=== PATIENT | female | born 1955 | race Caucasian/White ===

== ENCOUNTER 2021-05-01 17:12 | Inpatient (IN) ==
[2021-05-01] MEDS ORDERED: fentaNYL citrate 100 MCG/2 ML VIAL IV STA (17:42)
[2021-05-01] MEDS ORDERED: ONDANSETRON INJ 2 MG/ML 2 ML VIAL IV STA (17:42)
--- NOTE | 2021-05-01 17:43 | Emergency Department Note ---
History of Present Illness General Chief complaint: Chest Pain Stated complaint: Intermittent Chest Pressure Time Seen by Provider: 05/01/21 17:16 Source: patient History of Present Illness Provider complaint: Chest pain Onset (ago): month(s) 3 Location: chest Radiation: non-radiation Pain Consistency: + intermittent Quality: + other (Pressure) Exacerbated By: + other (Climbing stairs) Associated symptoms: + chest pain, + cough, + headaches and + shortness of breath; no fever/chills or no nausea/vomiting This is a 66-year-old female with a history of high cholesterol, high blood pressure and diabetes presenting from her doctor's office via EMS for evaluation of chest pain. The patient has had chest pain intermittently for the past 3 months. She has it mostly every day. It is worse in the mornings. She has noticed that it is worse when she climbs the stairs. She is not very active. She denies any personal history of coronary artery disease but her mother had CHF. She states that she had a stress test many many years ago but does not remember when. She was seen at her doctor's office for routine visit. She mentioned that she had chest pain. Her doctor did a EKG and sent her here for evaluation. She was given 2 nitroglycerin in the ambulance as well as aspirin. She has had cough and headache and body aches with a strange taste sensation for the past 2 months. She has been tested for Covid several times and this has been negative. She denies abdominal pain, vomiting, diarrhea or leg swelling or pain. She does state that she has retention after she urinates. Home Medications Medication Instructions Recorded Confirmed Type amlodipine 10 mg tablet 10 mg PO DAILY 05/01/21 05/01/21 History aspirin 81 mg tablet,delayed 81 mg PO DAILY 05/01/21 05/01/21 History release (Aspirin Low Dose) baclofen 10 mg tablet 10 mg PO HS 05/01/21 05/01/21 History buspirone 5 mg tablet See Rx Instructions .ROUTE .COMPLEX 05/01/21 05/01/21 History diphenhydramine HCl 25 mg capsule 50 mg PO HS 05/01/21 05/01/21 History (Benadryl) docusate sodium 100 mg capsule 100 mg PO BID 05/01/21 05/01/21 History fexofenadine 180 mg tablet 180 mg PO DAILY 05/01/21 05/01/21 History (Juanita Allergy) glucosamine sulfate 1,000 mg 1,000 mg PO BID 05/01/21 05/01/21 History capsule ibuprofen 200 mg tablet 400 mg PO Q6H PRN 05/01/21 05/01/21 History insulin glargine 100 unit/mL (3 42 unit SUBCUT BID 05/01/21 05/01/21 History mL) subcutaneous pen (Lantus Solostar U-100 Insulin) levothyroxine 125 mcg tablet 125 mcg PO QAM 05/01/21 05/01/21 History linagliptin 5 mg tablet (Tradjenta) 5 mg PO QAM 05/01/21 05/01/21 History lisinopril 10 mg tablet 10 mg PO QAM 05/01/21 05/01/21 History metformin 1,000 mg tablet 1,000 mg PO BIDM 05/01/21 05/01/21 History mometasone 50 mcg/actuation nasal 1 spray INTRANASAL QAM 05/01/21 05/01/21 History spray montelukast 10 mg tablet 10 mg PO QAM 05/01/21 05/01/21 History nystatin 100,000 unit/gram topical 1 applic TOPICAL DAILY PRN 05/01/21 05/01/21 History cream pantoprazole 40 mg tablet,delayed 40 mg PO QAM 05/01/21 05/01/21 History release rosuvastatin 20 mg tablet 20 mg PO QPM 05/01/21 05/01/21 History sertraline 100 mg tablet 200 mg PO QAM 05/01/21 05/01/21 History vitamin B complex 1 tab PO QAM 05/01/21 05/01/21 History Allergies Allergy/AdvReac Type Severity Reaction Status Date / Time naproxen Allergy Unknown "STROKE-LIKE Verified 05/01/21 18:02 SYMPTOMS" Past Med/Surg History Medical History (Updated 05/01/21 @ 19:59 by Hal Ornelas MD) Diabetes Hypertension Hypothyroidism Family History (Updated 05/01/21 @ 17:47 by Hal Ornelas MD) Mother Congestive heart failure Social History Smoking Status: Never smoker Feels Safe at Home: Yes Review of Systems See HPI for pertinent positives & negatives. and A total of 10 systems reviewed and were otherwise negative Physical Exam Vital Signs Vital Signs - 24 hr 05/01/21 17:29 05/01/21 17:35 05/01/21 17:47 Temperature 36.8 C Temperature Source Oral Pulse Rate 93 H 85 Pulse Rate [Apical] 98 H Respiratory Rate 20 22 20 Respiratory Effort / Characteristics Non-Labored Spontaneous Respiratory Depth Normal Respiratory Pattern Regular Blood Pressure 147/71 H Blood Pressure [Left Arm] 147/71 H Blood Pressure Mean 96 Blood Pressure Mean [Left Arm] 96 Blood Pressure Position Lying Pulse Oximetry 97 97 97 Oxygen Delivery Method Room Air Room Air Room Air Sepsis Recent Fever Within 48 Hours No Sepsis New/Unexplained Change in Mental Status N/A Sepsis Action Taken by Nursing No Action Required Constitutional: Vital signs reviewed. Eyes: Pupils are equal round reactive to light. Conjunctiva are noninjected. ENT: Pharynx is clear without erythema or exudate. Mucous membranes are moist. Neck supple without meningeal signs. Respiratory: Clear to auscultation bilaterally. Breath sounds are equal bilaterally. Cardiovascular: Regular rate and rhythm. No rubs or gallops. GI: Soft, nondistended and nontender. Bowel sounds are present. Musculoskeletal: No peripheral edema. No lower extremity tenderness. Integumentary: No cyanosis. or jaundice. Neurological: The patient is awake and alert. No focal deficits. Psychiatric: Normal affect. Not anxious appearing. Course Administered Medications Discontinued Medications Fentanyl Citrate (Fentanyl Citrate 100 Mcg/2 Ml Vial) 50 mcg IV NOW STA Stop: 05/01/21 17:43 Last Admin: 05/01/21 18:11 Dose: 50 mcg Documented by: [id number] Ioversol (Optiray 320 125ml) 120 ml IV ONCE ONE Stop: 05/01/21 19:12 Last Admin: 05/01/21 19:12 Dose: 120 ml Documented by: [id number] Ondansetron HCl (Ondansetron Inj 2 Mg/Ml 2 Ml Vial) 4 mg IV NOW STA Stop: 05/01/21 17:43 Last Admin: 05/01/21 18:11 Dose: 4 mg Documented by: [id number] Medical Decision Making Differential Diagnosis Unstable angina, [place], PE, pleurisy, pneumonia, GERD, anxiety Medical Records Attestation: I reviewed the patient's medical records. I did perform a limited focused review of portions of the patient's old chart on the electronic medical record. The patient has had no recent pertinent visits to this hospital. Home Medications Current Medication List: was personally reviewed by me Laboratory Data Attestation: I reviewed the patient's lab results. Result diagrams: 05/01/21 16:46 05/01/21 16:46 Lab Results 05/01/21 05/01/21 05/01/21 Range/Units 16:46 16:46 16:46 WBC 12.41 H (4.8-10.8) K/uL RBC 4.23 (4.2-5.4) M/uL Hgb 10.7 L (12.0-16.0) g/dL Hct 33.3 L (37-47) % MCV 78.7 L (80-100) fL MCH 25.3 (25-34) pg MCHC 32.1 (32-36) g/dL RDW Std Deviation 45.8 (36.4-46.3) fL RDW Coeff of Walker 15.9 H (11.5-14.5) % Plt Count 460 H (130-400) K/uL MPV 9.2 (7.4-10.4) fL Immature Gran % (Auto) 0.7 % Neut % (Auto) 73.2 % Lymph % (Auto) 14.9 % Josephine % (Auto) 9.6 % Eos % (Auto) 1.5 % Baso % (Auto) 0.1 % Neut # (Auto) 9.08 H (1.4-6.5) K/uL Lymph # (Auto) 1.85 (1.2-3.4) K/uL Josephine # (Auto) 1.19 H (0.11-0.59) K/uL Eos # (Auto) 0.19 (0-0.5) K/uL Baso # (Auto) 0.01 (0-0.2) K/uL Immature Gran # (Auto) 0.09 H (0.00-0.02) K/uL D-Dimer 5510 H* (0-500) ug/L FEU Sodium 126 L (136-145) mmol/L Potassium 4.1 (3.5-5.1) mmol/L Chloride 93 L (98-107) mmol/L Carbon Dioxide 24 (21-32) mmol/L Anion Gap 9.0 (3-11) BUN 7 (7-18) mg/dl Creatinine 0.85 (0.6-1.2) mg/dl Est Cr Clr Drug Dosing 92.0 ml/min Est GFR ( Amer) 83.3 ml/min Est GFR (Non-Af Amer) 71.9 ml/min BUN/Creatinine Ratio 8.4 L (10-20) Glucose 221 H (70-99) mg/dl Calcium 9.1 (8.5-10.1) mg/dl Total Bilirubin 0.3 (0.2-1) mg/dl AST 21 (15-37) U/L ALT 26 (12-78) U/L Alkaline Phosphatase 72 (45-117) U/L Troponin I < 0.015 (0-0.045) ng/ml Total Protein 7.9 (6.4-8.2) gm/dl Albumin 3.9 (3.4-5.0) gm/dl Globulin 4.0 (2.5-4.0) gm/dl Albumin/Globulin Ratio 1.0 (0.9-2) Lipase 153 (73-393) U/L COVID-19 Eval Order SARS-CoV-2 (PCR) (Negative) 05/01/21 05/01/21 Range/Units 18:09 18:09 WBC (4.8-10.8) K/uL RBC (4.2-5.4) M/uL Hgb (12.0-16.0) g/dL Hct (37-47) % MCV (80-100) fL MCH (25-34) pg MCHC (32-36) g/dL RDW Std Deviation (36.4-46.3) fL RDW Coeff of Walker (11.5-14.5) % Plt Count (130-400) K/uL MPV (7.4-10.4) fL Immature Gran % (Auto) % Neut % (Auto) % Lymph % (Auto) % Josephine % (Auto) % Eos % (Auto) % Baso % (Auto) % Neut # (Auto) (1.4-6.5) K/uL Lymph # (Auto) (1.2-3.4) K/uL Josephine # (Auto) (0.11-0.59) K/uL Eos # (Auto) (0-0.5) K/uL Baso # (Auto) (0-0.2) K/uL Immature Gran # (Auto) (0.00-0.02) K/uL D-Dimer (0-500) ug/L FEU Sodium (136-145) mmol/L Potassium (3.5-5.1) mmol/L Chloride (98-107) mmol/L Carbon Dioxide (21-32) mmol/L Anion Gap (3-11) BUN (7-18) mg/dl Creatinine (0.6-1.2) mg/dl Est Cr Clr Drug Dosing ml/min Est GFR ( Amer) ml/min Est GFR (Non-Af Amer) ml/min BUN/Creatinine Ratio (10-20) Glucose (70-99) mg/dl Calcium (8.5-10.1) mg/dl Total Bilirubin (0.2-1) mg/dl AST (15-37) U/L ALT (12-78) U/L Alkaline Phosphatase (45-117) U/L Troponin I (0-0.045) ng/ml Total Protein (6.4-8.2) gm/dl Albumin (3.4-5.0) gm/dl Globulin (2.5-4.0) gm/dl Albumin/Globulin Ratio (0.9-2) Lipase (73-393) U/L COVID-19 Eval Order Covid19 at [facility] SARS-CoV-2 (PCR) NEGATIVE (Negative) Imaging Data Radiologist's Impression: Chest X-Ray 05/01/21 17:42 XR chest 1V portable HISTORY: Atypical Chest Pain COMPARISON: Chest 11/25/2010. FINDINGS: The cardiac silhouette remains top normal in size. The lungs are clear. No pleural effusions. No pneumothorax. IMPRESSION: No acute process. ACT 112: Negative or not required by law. Electronically signed by: Maldonado Lang M.D. 05/01/2021 6:52 PM Chest CTA 05/01/21 18:24 CHEST CTA for PULMONARY ARTERIES CT DOSE: 969.58 mGy.cm HISTORY: Atypical chest pain. Dizziness. Chest pressure. TECHNIQUE: Multiaxial CT images of the chest were performed following the intravenous administration of contrast to evaluate the pulmonary arteries. Maximal intensity projection images were also obtained. A dose lowering technique was utilized adhering to the principles of ALARA. COMPARISON STUDY: None. FINDINGS: Hepatic steatosis. The visualized spleen and adrenal glands are unremarkable. Normal caliber thoracic aorta with no evidence for dissection. Moderate calcified plaque within the left coronary artery. The heart is normal in size. No pleural or pericardial effusions. The main and lobar pulmonary arteries are patent. The majority of the upper lobe segmental and subsegmental pulmonary arteries are patent. The lingular and right middle lobe segmental/subsegmental pulmonary arteries as well as the bilateral lower lobe segmental pulmonary arteries are nondiagnostic due to the respiratory motion artifact. The remaining pulmonary arteries are patent. No mediastinal hilar lymphadenopathy. Normal esophagus. No fractures within the visualized osseous structures. No pneumothorax. The central airways are patent. IMPRESSION: 1. No evidence for pulmonary embolus with limitations as described above. 2. No focal lung consolidations to suggest pneumonia. 3. Moderate calcified plaque within the left coronary artery. ACT 112: Negative or not required by law. Electronically signed by: Maldonado Lang M.D. 05/01/2021 7:47 PM ECG Data Attestation: I personally reviewed and interpreted this ECG as follows: Indication: + chest pain Rate (beats per minute): 89 Rhythm: + normal sinus ECG ST segments: + T-wave inversions (aVL only); no ST elevation ECG Findings: no PVCs Comparison ECG Date: no prior available MDM Narrative I did evaluate the patient as noted above. She is presenting with exertional chest pressure intermittently for the past 3 months. She did receive nitroglycerin x2 in the ambulance as well as 324 mg of aspirin p.o. I did place an order for continuous cardiac monitoring. The monitor showed normal sinus rhythm at a rate of 85 bpm. I did order and personally review the patient's 12- lead EKG as described above. She has a T wave inversion in lead aVL only. No ST elevations. I did order and personally reviewed the images of the patient's chest x-ray as described above. Chest x-ray is unremarkable. I did order a urine analysis. I did order and review the patient's blood work as noted in the electronic medical record. Her white blood cell count is 12,000. Hemoglobin is 10.7. Platelet count is 460. D-dimer was elevated at 5510. Sodium is 126 with a glucose of 221. Her last sodium on February 8 was 129 in the epic system. Troponin is negative. LFTs and lipase are negative. COVID-19 testing is negative. I did order a CT angiogram of the chest. I did review the images myself as well as the radiology report as described above. There is no evidence of pulmonary embolism. She does have a calcified plaque within the left coronary artery. I did discuss the test results with the patient. On reexamination she states that her chest pain is now resolved. I did recommend hospitalization for further care and evaluation. I did discuss the case with the hospitalist and case filler. Resident Physician Supervision Note: I did perform an independent evaluation and examination of this patient as described. I also saw this patient in conjunction with the resident, Dr. Quincy lizarraga, and guided management for the patient. Impression & Plan Exertional chest pain, Abnormal ECG, Coronary artery disease, Hyponatremia, Acute hyperglycemia Discharge Plan Visit Data Chief Complaint: Chest Pain Stated Complaint: Intermittent Chest Pressure ED Provider: Hal Ornelas ED Midlevel Provider: Skyla Earl Discharge Problem: Exertional chest pain, Abnormal ECG, Coronary artery disease, Hyponatremia, Acute hyperglycemia Patient Disposition: Being Evaluated by Hospitalist Forms Stand Alone Forms: My [facility] Prescriptions Prescriptions: No Action aspirin [Aspirin Low Dose] 81 mg Tablet,Delayed Release (Dr/Ec) 81 mg PO DAILY RF: 0 baclofen 10 mg tablet 10 mg PO HS RF: 0 amlodipine 10 mg tablet 10 mg PO DAILY RF: 0 montelukast 10 mg tablet 10 mg PO QAM RF: 0 buspirone 5 mg tablet See Rx Instructions .ROUTE .COMPLEX RF: 0 sertraline 100 mg tablet 200 mg PO QAM RF: 0 metformin 1,000 mg tablet 1,000 mg PO BIDM RF: 0 lisinopril 10 mg tablet 10 mg PO QAM RF: 0 Tradjenta 5 mg tablet 5 mg PO QAM RF: 0 pantoprazole 40 mg tablet,delayed release (DR/EC) 40 mg PO QAM RF: 0 levothyroxine 125 mcg tablet 125 mcg PO QAM RF: 0 Lantus Solostar U-100 Insulin 100 unit/mL (3 mL) insulin pen 42 unit SUBCUT BID RF: 0 fexofenadine [Juanita Allergy] 180 mg Tablet 180 mg PO DAILY RF: 0 nystatin 100,000 unit/gram Cream 1 applic TOPICAL DAILY PRN (Reason: Rash) RF: 0 ibuprofen [Excedrin IB] 200 mg Tablet 400 mg PO Q6H PRN (Reason: Pain) RF: 0 docusate sodium 100 mg Capsule 100 mg PO BID RF: 0 mometasone 50 mcg/actuation spray,non-aerosol 1 spray INTRANASAL QAM RF: 0 rosuvastatin 20 mg Tablet 20 mg PO QPM RF: 0 diphenhydramine HCl [Benadryl] 25 mg Capsule 50 mg PO HS RF: 0 vitamin B complex Tablet 1 tab PO QAM RF: 0 glucosamine sulfate 1,000 mg Capsule 1,000 mg PO BID RF: 0 Referrals Referrals: Darwin Doan [Outside Practitioners] -
[2021-05-01 17:54] LABS: Basophils # (auto) 0.01 K/uL (0-0.2); Basophils % (auto) 0.1 %; Eosinophils # (auto) 0.19 K/uL (0-0.5); Eosinophils % (auto) 1.5 %; Hematocrit (blood only) 33.3 % (37-47); Hemoglobin 10.7 g/dL (12.0-16.0); Immature Granulocytes # (auto) 0.09 K/uL (0.00-0.02); Immature Granulocytes % (auto) 0.7 %; Lymphocytes # (auto) 1.85 K/uL (1.2-3.4); Lymphocytes % (auto) 14.9 %; Mean Corpuscular Hemoglobin 25.3 pg (25-34); Mean Corpuscular Hgb Conc 32.1 g/dL (32-36); Mean Corpuscular Volume 78.7 fL (80-100); Mean Platelet Volume 9.2 fL (7.4-10.4); Monocytes # (auto) 1.19 K/uL (0.11-0.59); Monocytes % (auto) 9.6 %; Neutrophils # (auto) 9.08 K/uL (1.4-6.5); Neutrophils % (auto) 73.2 %; Platelet Count 460 K/uL (130-400); RDW Coefficient of Variation 15.9 % (11.5-14.5); RDW Standard Deviation 45.8 fL (36.4-46.3); Red Blood Count 4.23 M/uL (4.2-5.4); White Blood Count 12.41 K/uL (4.8-10.8)
--- NOTE | 2021-05-01 17:57 | Emergency Department Note ---
General (ED) Blank Date of Service May 01, 2021 ED Visit Note I personally saw, interviewed, and examined the patient. Patient's case was discussed with Dr. Ornelas, ED attending, and I assisted with MDM. Please see attending documentation for full details. Resident Activity Tracking Resident Involvement: Resident Care Provided Care Provided: Adult ED
[2021-05-01 18:01] LABS: Alanine Aminotransferase 26 U/L (12-78); Albumin Level 3.9 gm/dl (3.4-5.0); Aspartate Aminotransferase 21 U/L (15-37); BUN Creatinine Ratio 8.4 (10-20); Blood Urea Nitrogen 7 mg/dl (7-18); Calcium 9.1 mg/dl (8.5-10.1); Carbon Dioxide 24 mmol/L (21-32); Chloride 93 mmol/L (98-107); Est GFR (African American) 83.3 ml/min; Est GFR (Non-African American) 71.9 ml/min; Glucose 221 mg/dl (70-99); Lipase 153 U/L (73-393); Potassium 4.1 mmol/L (3.5-5.1); Sodium 126 mmol/L (136-145)
[2021-05-01 18:06] LABS: Alkaline Phosphatase 72 U/L (45-117); Bilirubin,Total 0.3 mg/dl (0.2-1); Total Protein 7.9 gm/dl (6.4-8.2); Troponin I < 0.015 ng/ml (0-0.045)
[2021-05-01 18:20] LABS: D Dimer 5510 ug/L FEU (0-500)
--- NOTE | 2021-05-01 18:53 | XRay Report ---
XR chest 1V portable HISTORY: Atypical Chest Pain COMPARISON: Chest 11/25/2010. FINDINGS: The cardiac silhouette remains top normal in size. The lungs are clear. No pleural effusion s. No pneumothorax. IMPRESSION: No acute process. ACT 112: Negative or not required by law. Electronically signed by: Maldonado Lang M.D. 05/01/2021 6:52 PM
[2021-05-01] MEDS ORDERED: OPTIRAY 320 125ml IV ONE (19:11)
--- NOTE | 2021-05-01 19:48 | CT Scan Report ---
CHEST CTA for PULMONARY ARTERIES CT DOSE: 969.58 mGy.cm HISTORY: Atypical chest pain. Dizziness. Chest pressure. TECHNIQUE: Multiaxial CT images of the chest were performed following the intravenous administration of contrast to evaluate the pulmonary arteries. Maximal intensity projection images were also obtaine d. A dose lowering technique was utilized adhering to the principles of ALARA. COMPARISON STUDY: None. FINDINGS: Hepatic steatosis. The visualized spleen and adrenal glands are unremarkable. Normal calibe r thoracic aorta with no evidence for dissection. Moderate calcified plaque within the left coronary artery. The heart is normal in size. No pleural or pericardial effusions. The main and lobar pulmonar y arteries are patent. The majority of the upper lobe segmental and subsegmental pulmonary arteries a re patent. The lingular and right middle lobe segmental/subsegmental pulmonary arteries as well as th e bilateral lower lobe segmental pulmonary arteries are nondiagnostic due to the respiratory motion a rtifact. The remaining pulmonary arteries are patent. No mediastinal hilar lymphadenopathy. Normal es ophagus. No fractures within the visualized osseous structures. No pneumothorax. The central airways are patent. IMPRESSION: 1. No evidence for pulmonary embolus with limitations as described above. 2. No focal lung consolidations to suggest pneumonia. 3. Moderate calcified plaque within the left coronary artery. ACT 112: Negative or not required by law. Electronically signed by: Maldonado Lang M.D. 05/01/2021 7:47 PM
[2021-05-01] MEDS ORDERED: LORazepam 0.5 MG TAB PO STA (23:38)
[2021-05-01] MEDS ORDERED: BACLOFEN 10 MG TAB PO STA (23:39)
[2021-05-01] MEDS ORDERED: busPIRone 5 MG TAB PO STA (23:40)
[2021-05-02] MEDS ORDERED: POLYETHYLENE (MIRALAX) 17 GM PACK PO PRN (01:14)
[2021-05-02] MEDS ORDERED: NITROGLYCERIN SL 0.4 MG/TAB TAB SL PRN (01:14)
[2021-05-02] MEDS ORDERED: ONDANSETRON INJ 2 MG/ML 2 ML VIAL IV PRN (01:14)
[2021-05-02] MEDS ORDERED: SODIUM CHLORIDE 0.9% 1000ML 500 ML IV SCH (01:14)
[2021-05-02] MEDS ORDERED: NYSTATIN CR 15 GM TUBE EXT PRN (01:14)
[2021-05-02] MEDS ORDERED: ACETAMINOPHEN 325 MG TAB PO PRN (01:14)
[2021-05-02] MEDS ORDERED: CARBOHYDRATES FOR HYPOGLYCEMIA PO PRN (02:00)
[2021-05-02] MEDS ORDERED: GLUCOSE 40% GEL 15 GM TUBE PO PRN (02:00)
[2021-05-02] MEDS ORDERED: GLUCAGON FOR INJ 1 MG VIAL IM PRN (02:00)
[2021-05-02] MEDS ORDERED: DEXTROSE 50% 50 ML SYRINGE IV PRN (02:00)
[2021-05-02] MEDS ORDERED: GLUCOSE 10 TABS/TUBE PO PRN (02:00)
--- NOTE | 2021-05-02 04:03 | History and Physical Report ---
DATE OF ADMISSION: 05/01/2021. CHIEF COMPLAINT: Chest pain. HISTORY OF PRESENT ILLNESS: This is a 66-year-old female with past medical history significant for type 2 diabetes, diabetic gastroparesis, hypothyroidism, hyperlipidemia, hypertension, peripheral vascular disease, morbid obesity, GERD, post-traumatic stress disorder, anemia, generalized anxiety disorder, persistent insomnia, depression, history of endometrial cancer. Presents with chest pain. The patient says since last 3 months, she is having on an off chest pains everyday, sometime in the morning. They come and go. She is also having dizziness and headaches going on for last 3 months and also cough. She recently was supposed to get MRI scan of the brain, but not able to because she could not tolerate it. She was coughing a lot and moving a lot. Today because of chest pain, she went to the family doctor and EKG showed some T-wave inversion in inferior leads and she was advised to come here. In the ER, she received fentanyl. Currently, she says she is chest pain free. Resting comfortably and hemodynamically stable. Denies any shortness of breath. She still has a lot of dizziness. No blurred visions, no earache, no runny nose, no sore throat, no fevers. Currently, the patient has some nausea, no abdominal pain. Normal bowel and bladder movements. No swelling in the legs. ALLERGIES: NAPROXEN. PAST MEDICAL HISTORY: As mentioned above. PAST SURGICAL HISTORY: Colonoscopy, dilatation and curettage, EGD, EGD with biopsy, IUD, robotic laparoscopic hysterectomy, removal of tubes and ovaries, ligation of oviducts. MEDICATIONS: The patient is on amlodipine 10 mg p.o. daily, aspirin 81 mg p.o. daily, baclofen 10 mg p.o. at bedtime, buspirone as directed, Benadryl 50 mg p.o. at bedtime, Colace 100 mg p.o. b.i.d., Juanita 180 mg p.o. daily, glucosamine sulfate 1000 mg p.o. b.i.d., Excedrin IB 400 mg p.o. q. 6 hours p.r.n., Lantus 40 units subcutaneous b.i.d., levothyroxine 125 mcg p.o. daily, Tradjenta 5 mg p.o. a.m., lisinopril 10 mg p.o. a.m., metformin 1000 mg p.o. b.i.d., mometasone 1 spray intranasal q.a.m., montelukast 10 mg p.o. a.m., nystatin topical daily, Protonix 40 mg p.o. a.m., lovastatin 20 mg p.o. p.m., Zoloft 200 mg p.o. a.m., vitamin B complex 1 tablet p.o. a.m. FAMILY HISTORY: Significant for breast cancer, heart disorder, Alzheimer disease; sister has breast cancer, uterine cancer, hepatitis A; son has hypertension. SOCIAL HISTORY: , no smoking, alcohol rare, no drug use. REVIEW OF SYSTEMS: As per HPI. Rest of the review of systems is negative. PHYSICAL EXAMINATION: GENERAL: The patient is morbidly obese, not in acute distress. VITAL SIGNS: Temperature 36.8, pulse 92, respiratory rate 19, blood pressure 156/67, oxygen 96% on room air. HEENT: Pupils equal, round and reactive to light. Oral mucosa moist. NECK: No JVD or neck masses. CARDIOVASCULAR: S1 and S2 heard. Regular rate and rhythm. No murmur, no gallop. RESPIRATORY SYSTEM: Normal AP diameter. No accessory muscle use. No wheezing, no crackles. ABDOMEN: Soft, bowel sounds present, nontender, no distention. CENTRAL NERVOUS SYSTEM: Cranial nerves II through XII grossly intact, nonfocal. EXTREMITIES: No edema, no erythema. LABORATORY DATA: WBC 12.4, hemoglobin 10.7, hematocrit 33.3, platelets 460. D- dimer 5510. Sodium 126, potassium 4.1, chloride 93, bicarbonate 24, BUN 7, creatinine 0.8, serum glucose 221, calcium 9.1, total bilirubin 0.3, AST 21, ALT 26, alkaline phosphatase 72. Troponin I less than 0.015. Lipase 153. SARS-CoV-2 PCR negative. IMAGING DATA: CTA of the chest, no PE. No focal lung consolidation to suggest pneumonia. Moderate calcified plaque within the left coronary artery. Chest x- ray, no acute process. EKG: Normal sinus rhythm, rate of 89, no acute ST changes seen. ASSESSMENT AND PLAN: This is a 66-year-old female who presents with chest pain. 1. Chest pain: Going on for last 3 months on and off. No associated or relieving factors. Initial workup is negative.D dimer elevated but No PE on CTA chest. CTA chest showing calcified plaque within Left coronary artery. Will follow serial enzymes, echocardiogram, and consult cardiology in the a.m. for further recommendation. The patient has risk factors of obesity, diabetes, hypertension, and hyperlipidemia. Closely monitor in the med tele. 2. Ongoing dizziness and headaches: Supposed to get MRI, but could not be done. Can consider inpatient workup. 3. Hyponatremia: Sodium of 126, will follow urine sodium, urine osmolality, serum osmolality. Follow the repeat labs in the a.m. Giving gentle fluids total 500 mL. Consult nephrology in the a.m. for further recommendations. 4. Diabetes: Holding home medications. Cut back her Lantus to 25 units b.i.d. as the patient is currently n.p.o. Insulin sliding scale. Follow HbA1c level. Follow the blood sugars. When the patient is started back on diet, may go back to full dose Lantus. 5. Hyperlipidemia: Continue statin. 6. Depression: Continue Zoloft. 7. Hypertension: Continue lisinopril and amlodipine. Will monitor the blood pressure. 8. Generalized anxiety disorder: Continue her buspirone. 9. Insomnia: He takes Benadryl at bedtime. 10. Hypothyroidism: On Synthroid. 11. Gastroesophageal reflux disease: On Protonix. 12. Diabetic gastroparesis: The patient says currently she is not able to swallow meat. Monitor for any aspiration. 13. Deep venous thrombosis prophylaxis: Sequential compression devices for now. DISPOSITION: Observation in [employer]. Expect to discharge home and follow with family doctor. Job ID: [id number] [facility]iana
[2021-05-02] MEDS: LEVOTHYROXINE SODIUM 125 MCG TABLET PO SCH (05:37)
[2021-05-02 06:02] LABS: Appearance Urine Clear (Clear); Bacteria Urine Automated Negative (Negative); Bilirubin Urine Negative (Negative); Blood Urine Negative (Negative); Cast Urine Automated 0 /lpf (0-5); Color Urine Yellow; Glucose Urine UA Negative (Negative); Ketones Urine Negative (Negative); Leukocyte Esterase Urine 2+ (Negative); Nitrite Urine Negative (Negative); Protein Urine Negative (Negative); RBC Urine Automated 0-4 /hpf (0-4); Urobilinogen Urine Negative (Negative)
[2021-05-02 06:03] LABS: Basophils # (auto) 0.02 K/uL (0-0.2); Basophils % (auto) 0.2 %; Eosinophils # (auto) 0.18 K/uL (0-0.5); Eosinophils % (auto) 1.5 %; Hematocrit (blood only) 30.6 % (37-47); Hemoglobin 9.8 g/dL (12.0-16.0); Immature Granulocytes # (auto) 0.06 K/uL (0.00-0.02); Immature Granulocytes % (auto) 0.5 %; Lymphocytes % (auto) 19.6 %; Mean Corpuscular Hemoglobin 25.3 pg (25-34); Mean Corpuscular Volume 78.9 fL (80-100); Mean Platelet Volume 8.7 fL (7.4-10.4); Monocytes # (auto) 1.59 K/uL (0.11-0.59); Neutrophils % (auto) 65.2 %; Platelet Count 361 K/uL (130-400); RDW Standard Deviation 45.9 fL (36.4-46.3); Red Blood Count 3.88 M/uL (4.2-5.4); White Blood Count 12.25 K/uL (4.8-10.8)
[2021-05-02 06:44] LABS: Blood Urea Nitrogen 7 mg/dl (7-18); Calcium 8.6 mg/dl (8.5-10.1); Carbon Dioxide 27 mmol/L (21-32); Chloride 94 mmol/L (98-107); Creatinine Clr Calc Pharmacy 102.5 ml/min; Est GFR (African American) 96.9 ml/min; Est GFR (Non-African American) 83.6 ml/min; Glucose 96 mg/dl (70-99); Magnesium 1.7 mg/dl (1.8-2.4); Potassium 3.8 mmol/L (3.5-5.1); Sodium 126 mmol/L (136-145)
[2021-05-02 06:49] LABS: Troponin I < 0.015 ng/ml (0-0.045)
[2021-05-02] MEDS ORDERED: MAGNESIUM SULFATE / D5W 1 GM/100 ML BAG IV ONE (07:16)
[2021-05-02] MEDS: INSULIN ASPART 100 UNITS/ML 3 ML PEN SC SCH ×4 (08:57→20:10)
[2021-05-02] MEDS: FEXOFENADINE HCL 180 MG TAB PO SCH (08:58)
[2021-05-02] MEDS: INSULIN GLARGINE SOLOSTAR 100 UNITS/ML 3 ML PEN SC SCH ×2 (08:58→20:12)
[2021-05-02] MEDS: busPIRone 5 MG TAB PO SCH ×3 (08:59→20:07)
[2021-05-02] MEDS: SERTRALINE HCL 100 MG TABLET PO SCH (08:59)
[2021-05-02] MEDS: ASPIRIN 81 MG ECTAB PO SCH (08:59)
[2021-05-02] MEDS: DOCUSATE SODIUM 100 MG CAP PO SCH ×2 (08:59→20:07)
[2021-05-02] MEDS: PANTOprazole 40 MG TAB PO SCH (08:59)
[2021-05-02] MEDS: amLODIPine BESYLATE 5 MG TAB PO SCH (09:00)
[2021-05-02] MEDS: VITAMIN B COMPLEX TAB PO SCH (09:00)
[2021-05-02] MEDS: FLUTICASONE PROPIONATE NA SPR 16 GM BTL SCH (09:00)
[2021-05-02] MEDS: lisinopril 10 MG TAB PO SCH (09:00)
[2021-05-02] MEDS ORDERED: GLUCOSAMINE SULFATE 1000 MG PO SCH (09:00)
[2021-05-02 09:09] LABS: Estimated Average Glucose 151 mg/dl; Hemoglobin A1C 6.9 % (4.5-5.6)
--- NOTE | 2021-05-02 09:30 | Nephrology Consultation ---
Date of Consultation May 02, 2021 Assessment & Plan (1) Hyponatremia: chronic hyponatremia in a pt who drinks 100 -150 oz daily water (plus popsicles, other beverages) daily on daily nsaids and sertraline: SIADH/ low - solute diet. prsented w/ sNa 126, relativley minor change from sNa 130 which is where she has been for 2+ years. -stopped benadryl as it may be worsening dry mouth/sense of urinary retention -recheck bmp now >> goal is sNa 128 or better and she could be f/u as OP -when taking po recommend 1.5L FR; explained FR includes anything liquid at room temp like popsicles -no NSAIDS unless needed from cardiac standpoint ? if she could have lower sertraline dose, but defer to medical team -likely to need OP f/u (2) Chronic headache: recommend she f/u w/ neuro on this; recommended tylenol and caffeine to treat such as excedrine migraine; other excedrine products w/ nsaids, inappropriate for her History of Present Illness Reason for Consultation: hyponatremia Requesting Physician: Dr Moise Attending Physician: Haroon Moise MD History of Present Illness 66 y/o F whom I'm asked to evaluate for hyponatremia with presenting sodium 126 was admitted last evening for evaluation of 3 months of intermittent but daily chest pain accompanied by GUTIERREZ and cough. PMH includes DM w/ gastroparesis, PVD, hypothyroid, GERD, class 3 obesity, anxiety on sertraline and buspar, hx of endometrial CA. She had 500 mL NS on arrival. this AM sNa unchanged. serum Osms 260, u osm 225, Skyla 16. CT chest PE protocol w/ no PE, no PNA. After unremarkable TTE and other review, cardiology does not believe she has cardiac issue. States she's had GUTIERREZ since about November 2019; takes excedrine a few times daily prior to admission to treat this; denies ibuprofen use though it's on her med list. States her dizziness began 3 mos back; has fallen, most recently last year. endorses sx of urinary retention beginning past few days; else no new/worrisome voiding sx Pt has had sNa of about 130 as OP since 2018. Her is at bedside and states she's been told in past to limit fluid intake but she has really struggled w/ this. She has terrible thirst she states, a very sore tongue/mouth, and poor appetite. She drinks 6-8 x 24 oz bottles of water daily at home. states she takes meds and then needs popsicles in am after that to relieve mouth. has been NPO most of day today for possible procedure but has been having ice chips. Allergies Allergy/AdvReac Type Severity Reaction Status Date / Time naproxen Allergy Unknown "STROKE-LIKE Verified 05/01/21 18:02 SYMPTOMS" Home Medications Medication Instructions Recorded Confirmed Type amlodipine 10 mg tablet 10 mg PO DAILY 05/01/21 05/01/21 History aspirin 81 mg tablet,delayed 81 mg PO DAILY 05/01/21 05/01/21 History release (Aspirin Low Dose) baclofen 10 mg tablet 10 mg PO HS 05/01/21 05/01/21 History buspirone 5 mg tablet See Rx Instructions .ROUTE .COMPLEX 05/01/21 05/01/21 History diphenhydramine HCl 25 mg capsule 50 mg PO HS 05/01/21 05/01/21 History (Benadryl) docusate sodium 100 mg capsule 100 mg PO BID 05/01/21 05/01/21 History fexofenadine 180 mg tablet 180 mg PO DAILY 05/01/21 05/01/21 History (Juanita Allergy) glucosamine sulfate 1,000 mg 1,000 mg PO BID 05/01/21 05/01/21 History capsule ibuprofen 200 mg tablet 400 mg PO Q6H PRN 05/01/21 05/01/21 History insulin glargine 100 unit/mL (3 42 unit SUBCUT BID 05/01/21 05/01/21 History mL) subcutaneous pen (Lantus Solostar U-100 Insulin) levothyroxine 125 mcg tablet 125 mcg PO QAM 05/01/21 05/01/21 History linagliptin 5 mg tablet (Tradjenta) 5 mg PO QAM 05/01/21 05/01/21 History lisinopril 10 mg tablet 10 mg PO QAM 05/01/21 05/01/21 History metformin 1,000 mg tablet 1,000 mg PO BIDM 05/01/21 05/01/21 History mometasone 50 mcg/actuation nasal 1 spray INTRANASAL QAM 05/01/21 05/01/21 History spray montelukast 10 mg tablet 10 mg PO QAM 05/01/21 05/01/21 History nystatin 100,000 unit/gram topical 1 applic TOPICAL DAILY PRN 05/01/21 05/01/21 History cream pantoprazole 40 mg tablet,delayed 40 mg PO QAM 05/01/21 05/01/21 History release rosuvastatin 20 mg tablet 20 mg PO QPM 05/01/21 05/01/21 History sertraline 100 mg tablet 200 mg PO QAM 05/01/21 05/01/21 History vitamin B complex 1 tab PO QAM 05/01/21 05/01/21 History Patient History Medical History (Updated 05/02/21 @ 15:28 by Dariela Peterson MD, PhD) Anxiety Chronic headache Diabetes Hypertension Hypothyroidism Obesity Surgical History H/O total hysterectomy with bilateral salpingo-oophorectomy (BSO) Family History Mother Congestive heart failure Social History Smoking Status: Never smoker Hx Alcohol Use: No Hx Substance Use: No Communication Ability: Effective Beliefs That Will Affect Care: None Current Living Situation: Spouse Other Information That Helps Us Care for You: No Feels Safe at Home: Yes Safety Concerns: Feels Safe At This Time Assistive Devices: Glasses Review of Systems Review of Systems: All systems reviewed & are unremarkable except as noted in HPI & below Physical Exam Constitutional: well developed, well nourished, + morbidly obese and cooperative; no acute distress Eyes: EOM intact bilaterally ENMT: Ears: no external ear abnormality Nose: no external nose abnormality Mouth: + dry oral mucous membranes Neck: no nuchal rigidity Respiratory: normal respiratory effort Auscultation: + diminished lung sounds Gastrointestinal (Abdomen): Inspection/Auscultation: normal bowel sounds Percussion/Palpation: abdomen soft; abdomen nontender Musculoskeletal: Extremities: strength 5/5 throughout Skin: no rashes, warm and dry Neurologic: mclean, fluent speech; resting LUE tremor Psychiatric: Orientation: alert and oriented x 3 Speech: normal rate/rhythm/volume of speech Affect: + anxious affect Insight: + limited insight Judgement: + limited judgement Results & Data ([place]) Vital Signs (Past 12 Hours) Vital Signs Temp Pulse Pulse Pulse Resp BP BP 05/02/21 07:25 36.5 C 79 18 05/02/21 04:38 95 H 05/02/21 03:27 36.7 C 78 17 136/71 05/02/21 01:14 36.9 C 96 H 22 163/82 H 05/02/21 00:16 92 H 19 156/67 H BP Pulse Ox Pulse Ox 05/02/21 07:25 128/72 95 05/02/21 04:38 05/02/21 03:27 95 05/02/21 01:14 98 100 05/02/21 00:16 96 Laboratory Results 05/02/21 05:27 05/02/21 05:27 trops neg x 2 UACM > 1020; 2+ LE< WBC and epis Sodium labs as per HPI TSH wnl Diagnostic Findings chest CT PE protocol as above TTE 04/2021 > nl LV /RV fnxn, sz, motion; atrial sizes wnl as is valve structure/fnxn
--- NOTE | 2021-05-02 10:46 | Cardiology Consultation ---
Date of Consultation May 02, 2021 Assessment & Plan (1) Obesity: (2) Anxiety: (3) Coronary artery disease: (4) Hyponatremia: (5) Diabetes: (6) Imbalance: (7) Dizziness: (8) Atypical chest pain: The patient does have risk factors including diabetes for arteriosclerotic vascular disease. The patient on her CT has coronary calcium which would go along with this diagnosis however, her symptoms seem to be noncardiac. She has had them for months and her real chief complaint is that of imbalance or dizziness which has been episodic. She has no prior history of ear infections or hearing loss. She may have cerebrovascular disease which is contributing to her symptoms. Her cardiac markers are negative. To my review her EKGs are negative. As mentioned above her hyponatremia is being worked up by nephrology. She has a resting echocardiogram which is pending but if it is unremarkable then I would favor no additional cardiac testing. I would recommend a neurology consult. She is already appropriately treated with a statin for her coronary calcium and atherosclerotic vascular disease. History of Present Illness Attending Physician: Haroon Moise MD History of Present Illness This is a 66-year-old female with past medical history significant for type 2 diabetes, diabetic gastroparesis, hypothyroidism, hyperlipidemia, hypertension, peripheral vascular disease, morbid obesity, GERD, post-traumatic stress disorder, anemia, generalized anxiety disorder, persistent insomnia, depression, history of endometrial cancer. The patient over the past several months has been experiencing what she describes as dizziness or an imbalance especially when she first stands up. This can last for several seconds to minutes and then resolves. At times it can be associated to what she describes as chest pressure, no pain or tachycardia. The patient went into see her primary care physician yesterday with the chief complaint being imbalance and dizziness. She mentioned that she had some chest pressure and an EKG was obtained. Patient was then sent to the ER where she has been admitted. She has had no activity related chest pain or progressive shortness of breath but admits that she is not very active at home. She has no prior history of heart disease. She does have some coronary calcium on her recent CT. She is treated for diabetes and has been on a statin for years. EKGs to my review are within normal limits. Cardiac markers are negative. She has an echocardiogram pending. Sodium was low on admission and a consultation has been placed for nephrology. Allergies Allergy/AdvReac Type Severity Reaction Status Date / Time naproxen Allergy Unknown "STROKE-LIKE Verified 05/01/21 18:02 SYMPTOMS" Home Medications Medication Instructions Recorded Confirmed Type amlodipine 10 mg tablet 10 mg PO DAILY 05/01/21 05/01/21 History aspirin 81 mg tablet,delayed 81 mg PO DAILY 05/01/21 05/01/21 History release (Aspirin Low Dose) baclofen 10 mg tablet 10 mg PO HS 05/01/21 05/01/21 History buspirone 5 mg tablet See Rx Instructions .ROUTE .COMPLEX 05/01/21 05/01/21 History diphenhydramine HCl 25 mg capsule 50 mg PO HS 05/01/21 05/01/21 History (Benadryl) docusate sodium 100 mg capsule 100 mg PO BID 05/01/21 05/01/21 History fexofenadine 180 mg tablet 180 mg PO DAILY 05/01/21 05/01/21 History (Juanita Allergy) glucosamine sulfate 1,000 mg 1,000 mg PO BID 05/01/21 05/01/21 History capsule ibuprofen 200 mg tablet 400 mg PO Q6H PRN 05/01/21 05/01/21 History insulin glargine 100 unit/mL (3 42 unit SUBCUT BID 05/01/21 05/01/21 History mL) subcutaneous pen (Lantus Solostar U-100 Insulin) levothyroxine 125 mcg tablet 125 mcg PO QAM 05/01/21 05/01/21 History linagliptin 5 mg tablet (Tradjenta) 5 mg PO QAM 05/01/21 05/01/21 History lisinopril 10 mg tablet 10 mg PO QAM 05/01/21 05/01/21 History metformin 1,000 mg tablet 1,000 mg PO BIDM 05/01/21 05/01/21 History mometasone 50 mcg/actuation nasal 1 spray INTRANASAL QAM 05/01/21 05/01/21 History spray montelukast 10 mg tablet 10 mg PO QAM 05/01/21 05/01/21 History nystatin 100,000 unit/gram topical 1 applic TOPICAL DAILY PRN 05/01/21 05/01/21 History cream pantoprazole 40 mg tablet,delayed 40 mg PO QAM 05/01/21 05/01/21 History release rosuvastatin 20 mg tablet 20 mg PO QPM 05/01/21 05/01/21 History sertraline 100 mg tablet 200 mg PO QAM 05/01/21 05/01/21 History vitamin B complex 1 tab PO QAM 05/01/21 05/01/21 History Patient History Medical History Anxiety Diabetes Hypertension Hypothyroidism Obesity Surgical History H/O total hysterectomy with bilateral salpingo-oophorectomy (BSO) Family History Mother Congestive heart failure Social History Smoking Status: Never smoker Hx Alcohol Use: No Hx Substance Use: No Beliefs That Will Affect Care: None Current Living Situation: Spouse Other Information That Helps Us Care for You: No Feels Safe at Home: Yes Safety Concerns: Feels Safe At This Time Assistive Devices: Glasses Review of Systems Review of Systems: Review of Systems: See HPI for pertinent positives. All other 10 point review of systems are negative. Physical Exam Physical Exam: General: no acute distress and stated age Head: normocephalic, no masses, lesions, tenderness or abnormalities Eyes: conjunctiva are pink and non-injected, sclera clear Neck: supple, no adenopathy, no bruits, normal jugular venous pulse, no hepatojugular reflux Chest: normal shape and normal respiratory effort Lungs: clear to auscultation and percussion Cardiac Exam: - regular rate & rhythm, no murmurs gallops or rubs - normal S1, normal S2 Pulses: 2(+) throughout Abdomen: abdomen soft, non-tender, no abnormal masses and no hepatosplenomegaly Musculoskeletal: no gait disturbance, no joint inflammation, no deforming arthritis Extremities: no edema and no cyanosis Neuro: grossly normal exam Results & Data ([facility]) Vital Signs (Past 12 Hours) Vital Signs Temp Pulse Pulse Pulse Resp BP BP 05/02/21 07:25 36.5 C 79 18 05/02/21 04:38 95 H 05/02/21 03:27 36.7 C 78 17 136/71 05/02/21 01:14 36.9 C 96 H 22 163/82 H 05/02/21 00:16 92 H 19 156/67 H BP Pulse Ox Pulse Ox 05/02/21 07:25 128/72 95 05/02/21 04:38 05/02/21 03:27 95 05/02/21 01:14 98 100 05/02/21 00:16 96 Laboratory Results Laboratory Results - last 24 hr 05/01/21 05/01/21 05/01/21 16:46 16:46 16:46 WBC 12.41 H RBC 4.23 Hgb 10.7 L Hct 33.3 L MCV 78.7 L MCH 25.3 MCHC 32.1 RDW Std Deviation 45.8 RDW Coeff of Walker 15.9 H Plt Count 460 H MPV 9.2 Immature Gran % (Auto) 0.7 Neut % (Auto) 73.2 Lymph % (Auto) 14.9 Bennett % (Auto) 9.6 Eos % (Auto) 1.5 Baso % (Auto) 0.1 Neut # (Auto) 9.08 H Lymph # (Auto) 1.85 Bennett # (Auto) 1.19 H Eos # (Auto) 0.19 Baso # (Auto) 0.01 Immature Gran # (Auto) 0.09 H D-Dimer 5510 H* Sodium 126 L Potassium 4.1 Chloride 93 L Carbon Dioxide 24 Anion Gap 9.0 BUN 7 Creatinine 0.85 Est Cr Clr Drug Dosing 92.0 Est GFR ( Amer) 83.3 Est GFR (Non-Af Amer) 71.9 BUN/Creatinine Ratio 8.4 L Glucose 221 H POC Glucose Estimat Average Glucose Hemoglobin A1c Osmolality Calcium 9.1 Magnesium Total Bilirubin 0.3 AST 21 ALT 26 Alkaline Phosphatase 72 Troponin I < 0.015 Total Protein 7.9 Albumin 3.9 Globulin 4.0 Albumin/Globulin Ratio 1.0 Lipase 153 Urine Color Urine Appearance Urine pH Ur Specific [place] Urine Protein Urine Glucose (UA) Urine Ketones Urine Blood Urine Nitrite Urine Bilirubin Urine Urobilinogen Ur Leukocyte Esterase Urine WBC (Auto) Urine RBC (Auto) U Hyaline Cast (Auto) U Epithel Cells (Auto) Urine Bacteria (Auto) Urine Osmolality Ur Random Sodium COVID-19 Eval Order SARS-CoV-2 (PCR) 05/01/21 05/01/21 05/02/21 18:09 18:09 05:27 WBC 12.25 H RBC 3.88 L Hgb 9.8 L Hct 30.6 L MCV 78.9 L MCH 25.3 MCHC 32.0 RDW Std Deviation 45.9 RDW Coeff of Walker 16.0 H Plt Count 361 MPV 8.7 Immature Gran % (Auto) 0.5 Neut % (Auto) 65.2 Lymph % (Auto) 19.6 Bennett % (Auto) 13.0 Eos % (Auto) 1.5 Baso % (Auto) 0.2 Neut # (Auto) 8.00 H Lymph # (Auto) 2.40 Bennett # (Auto) 1.59 H Eos # (Auto) 0.18 Baso # (Auto) 0.02 Immature Gran # (Auto) 0.06 H D-Dimer Sodium Potassium Chloride Carbon Dioxide Anion Gap BUN Creatinine Est Cr Clr Drug Dosing Est GFR ( Amer) Est GFR (Non-Af Amer) BUN/Creatinine Ratio Glucose POC Glucose Estimat Average Glucose Hemoglobin A1c Osmolality Calcium Magnesium Total Bilirubin AST ALT Alkaline Phosphatase Troponin I Total Protein Albumin Globulin Albumin/Globulin Ratio Lipase Urine Color Urine Appearance Urine pH Ur Specific [place] Urine Protein Urine Glucose (UA) Urine Ketones Urine Blood Urine Nitrite Urine Bilirubin Urine Urobilinogen Ur Leukocyte Esterase Urine WBC (Auto) Urine RBC (Auto) U Hyaline Cast (Auto) U Epithel Cells (Auto) Urine Bacteria (Auto) Urine Osmolality Ur Random Sodium COVID-19 Eval Order Covid19 at [facility] SARS-CoV-2 (PCR) NEGATIVE 05/02/21 05/02/21 05/02/21 05:27 05:27 05:27 WBC RBC Hgb Hct MCV MCH MCHC RDW Std Deviation RDW Coeff of Walker Plt Count MPV Immature Gran % (Auto) Neut % (Auto) Lymph % (Auto) Bennett % (Auto) Eos % (Auto) Baso % (Auto) Neut # (Auto) Lymph # (Auto) Bennett # (Auto) Eos # (Auto) Baso # (Auto) Immature Gran # (Auto) D-Dimer Sodium 126 L Potassium 3.8 Chloride 94 L Carbon Dioxide 27 Anion Gap 5.0 BUN 7 Creatinine 0.75 Est Cr Clr Drug Dosing 102.5 Est GFR ( Amer) 96.9 Est GFR (Non-Af Amer) 83.6 BUN/Creatinine Ratio 9.0 L Glucose 96 POC Glucose Estimat Average Glucose 151 Hemoglobin A1c 6.9 H Osmolality 260 L Calcium 8.6 Magnesium 1.7 L Total Bilirubin AST ALT Alkaline Phosphatase Troponin I < 0.015 Total Protein Albumin Globulin Albumin/Globulin Ratio Lipase Urine Color Urine Appearance Urine pH Ur Specific [place] Urine Protein Urine Glucose (UA) Urine Ketones Urine Blood Urine Nitrite Urine Bilirubin Urine Urobilinogen Ur Leukocyte Esterase Urine WBC (Auto) Urine RBC (Auto) U Hyaline Cast (Auto) U Epithel Cells (Auto) Urine Bacteria (Auto) Urine Osmolality Ur Random Sodium COVID- Eval Order SARS-CoV-2 (PCR) 05/02/21 05/02/21 05/02/21 05:44 05:44 05:44 WBC RBC Hgb Hct MCV MCH MCHC RDW Std Deviation RDW Coeff of Walker Plt Count MPV Immature Gran % (Auto) Neut % (Auto) Lymph % (Auto) Bennett % (Auto) Eos % (Auto) Baso % (Auto) Neut # (Auto) Lymph # (Auto) Bennett # (Auto) Eos # (Auto) Baso # (Auto) Immature Gran # (Auto) D-Dimer Sodium Potassium Chloride Carbon Dioxide Anion Gap BUN Creatinine Est Cr Clr Drug Dosing Est GFR ( Amer) Est GFR (Non-Af Amer) BUN/Creatinine Ratio Glucose POC Glucose Estimat Average Glucose Hemoglobin A1c Osmolality Calcium Magnesium Total Bilirubin AST ALT Alkaline Phosphatase Troponin I Total Protein Albumin Globulin Albumin/Globulin Ratio Lipase Urine Color Yellow Urine Appearance Clear Urine pH 6.0 Ur Specific [place] 1.020 Urine Protein Negative Urine Glucose (UA) Negative Urine Ketones Negative Urine Blood Negative Urine Nitrite Negative Urine Bilirubin Negative Urine Urobilinogen Negative Ur Leukocyte Esterase 2+ H Urine WBC (Auto) 10-30 H Urine RBC (Auto) 0-4 U Hyaline Cast (Auto) 0 U Epithel Cells (Auto) 10-20 H Urine Bacteria (Auto) Negative Urine Osmolality 225 L Ur Random Sodium 16 COVID- Eval Order SARS-CoV-2 (PCR) 05/02/21 07:53 WBC RBC Hgb Hct MCV MCH MCHC RDW Std Deviation RDW Coeff of Walker Plt Count MPV Immature Gran % (Auto) Neut % (Auto) Lymph % (Auto) Bennett % (Auto) Eos % (Auto) Baso % (Auto) Neut # (Auto) Lymph # (Auto) Bennett # (Auto) Eos # (Auto) Baso # (Auto) Immature Gran # (Auto) D-Dimer Sodium Potassium Chloride Carbon Dioxide Anion Gap BUN Creatinine Est Cr Clr Drug Dosing Est GFR ( Amer) Est GFR (Non-Af Amer) BUN/Creatinine Ratio Glucose POC Glucose 103 H Estimat Average Glucose Hemoglobin A1c Osmolality Calcium Magnesium Total Bilirubin AST ALT Alkaline Phosphatase Troponin I Total Protein Albumin Globulin Albumin/Globulin Ratio Lipase Urine Color Urine Appearance Urine pH Ur Specific [place] Urine Protein Urine Glucose (UA) Urine Ketones Urine Blood Urine Nitrite Urine Bilirubin Urine Urobilinogen Ur Leukocyte Esterase Urine WBC (Auto) Urine RBC (Auto) U Hyaline Cast (Auto) U Epithel Cells (Auto) Urine Bacteria (Auto) Urine Osmolality Ur Random Sodium COVID-19 Eval Order SARS-CoV-2 (PCR) Medications Administered Current Inpatient Medications Acetaminophen (Acetaminophen 325 Mg Tab) 650 mg PO Q4H PRN PRN Reason: Pain or Fever Stop: 06/01/21 01:13 Last Admin: 05/02/21 02:55 Dose: 650 mg Documented by: Amlodipine Besylate (Amlodipine Besylate 5 Mg Tab) 10 mg PO DAILY [facility] Stop: 06/01/21 08:59 Last Admin: 05/02/21 09:00 Dose: 10 mg Documented by: Aspirin (Aspirin 81 Mg Ectab) 81 mg PO DAILY [facility] Stop: 06/01/21 08:59 Last Admin: 05/02/21 08:59 Dose: 81 mg Documented by: Baclofen (Baclofen 10 Mg Tab) 10 mg PO HS [facility] Stop: 06/01/21 20:59 Buspirone HCl (Buspirone 5 Mg Tab) 20 mg PO BID [facility] Stop: 06/01/21 08:59 Last Admin: 05/02/21 08:59 Dose: 20 mg Documented by: Buspirone HCl (Buspirone 5 Mg Tab) 10 mg PO DAILY@1400 [facility] Stop: 06/01/21 13:59 Dextrose (Dextrose 50% 50 Ml Syringe) 25 - 50 ml IV UD PRN; Protocol PRN Reason: Hypoglycemia Protocol Stop: 06/01/21 01:59 Diphenhydramine HCl (Diphenhydramine Capsule 25 Mg Cap) 50 mg PO HS [facility] Stop: 06/01/21 20:59 Docusate Sodium (Docusate Sodium 100 Mg Cap) 100 mg PO BID [facility] Stop: 06/01/21 08:59 Last Admin: 05/02/21 08:59 Dose: 100 mg Documented by: Fexofenadine HCl (Fexofenadine Hcl 180 Mg Tab) 180 mg PO DAILY [facility] Stop: 06/01/21 08:59 Last Admin: 05/02/21 08:58 Dose: 180 mg Documented by: Fluticasone Propionate (Fluticasone Propionate Na Spr 16 Gm Btl) 1 sprays NA QAM [facility] Stop: 06/01/21 08:59 Last Admin: 05/02/21 09:00 Dose: 1 sprays Documented by: Glucagon (Glucagon For Inj 1 Mg Vial) 1 mg IM UD PRN; Protocol PRN Reason: Hypoglycemia Protocol Stop: 06/01/21 01:59 Glucose (Glucose 40% Gel 15 Gm Tube) 15 - 30 gm PO UD PRN; Protocol PRN Reason: Hypoglycemia Protocol Stop: 06/01/21 01:59 Glucose (Glucose 10 Tabs/Tube) 4 - 8 tabs PO UD PRN; Protocol PRN Reason: Hypoglycemia Protocol Stop: 06/01/21 01:59 Insulin Aspart (Insulin Aspart 100 Units/Ml 3 Ml Pen) 0 units SC ACHS [facility] Stop: 06/01/21 07:29 Last Admin: 05/02/21 08:57 Dose: Not Given Documented by: Insulin Glargine (Insulin Glargine Solostar 100 Units/Ml 3 Ml Pen) 25 units SC BID [facility] Stop: 06/01/21 08:59 Last Admin: 05/02/21 08:58 Dose: 25 units Documented by: Levothyroxine Sodium (Levothyroxine Sodium 125 Mcg Tablet) 125 mcg PO DAILYBB [facility] Stop: 06/01/21 06:29 Last Admin: 05/02/21 05:37 Dose: 125 mcg Documented by: Lisinopril (Lisinopril 10 Mg Tab) 10 mg PO QAM [facility] Stop: 06/01/21 08:59 Last Admin: 05/02/21 09:00 Dose: 10 mg Documented by: Miscellaneous (Carbohydrates For Hypoglycemia ) 15 - 30 gm PO UD PRN PRN Reason: Hypoglycemia Treatment Stop: 06/01/21 01:59 Montelukast Sodium (Montelukast Sodium 10 Mg Tablet) 10 mg PO HS [facility] Stop: 06/01/21 20:59 Nitroglycerin (Nitroglycerin Sl 0.4 Mg/Tab Tab) 0.4 mg SL UD PRN PRN Reason: Chest Pain Stop: 06/01/21 01:13 Nystatin (Nystatin Cr 15 Gm Tube) 1 appln EXT DAILY PRN PRN Reason: Rash Stop: 06/01/21 01:13 Ondansetron HCl (Ondansetron Inj 2 Mg/Ml 2 Ml Vial) 4 mg IV Q6H PRN PRN Reason: Nausea Stop: 06/01/21 01:13 Pantoprazole Sodium (Pantoprazole 40 Mg Tab) 40 mg PO QAM [facility] Stop: 06/01/21 08:59 Last Admin: 05/02/21 08:59 Dose: 40 mg Documented by: Polyethylene Glycol (Polyethylene (Miralax) 17 Gm Pack) 17 gm PO DAILY PRN PRN Reason: Constipation Stop: 06/01/21 01:13 Rosuvastatin Calcium (Rosuvastatin Calcium 20 Mg Tab) 20 mg PO QPM [facility] Stop: 06/01/21 20:59 Sertraline HCl (Sertraline Hcl 100 Mg Tablet) 200 mg PO [facility] Stop: 06/01/21 08:59 Last Admin: 05/02/21 08:59 Dose: 200 mg Documented by: Vitamin B Complex (Vitamin B Complex Tab) [facility] Stop: 06/01/21 08:59 Last Admin: 05/02/21 09:00 Dose: 1 tab Documented by: (1) Coronary artery disease Associated angina: with unspecified form of angina Coronary Disease- Associated Artery/Lesion type: [place] artery [place] vs. transplanted heart: [place] heart Qualified Code(s): I25.119 - Atherosclerotic heart disease of [place] coronary artery with unspecified angina pectoris
--- NOTE | 2021-05-02 11:28 | Neurology Consultation ---
Date of Consultation May 02, 2021 Assessment & Plan (1) Dizziness: 1. MRI as outpatient no acute findings 3. PT - milly maneuver 4. orthostatics if not already done 5. neck pain no radiation to arms 6. SULTANA could be tried as an outpatient 7. would start gabapentin 100 mg hs x 5 days then 100 mg twice daily x 5 days then 100 mg three x times daily 8. may be in an over use headache cycle which steroid usual help would effect her blood sugars 9. needs follow up with ophthalmology at discharge. phone appointment already in place for further management of headaches. will be available for questions concerns. (2) Imbalance: 1. PT for balace assessment and discharge recommendations. Supervising Physician Co-Signing Physician Notes Patient was seen and examined this afternoon at bedside. Patient was up ambulating independently to the bathroom. Her is at bedside. She complains of a predominantly posterior headache which has been ongoing since October. She has daily headaches. Headaches are associated with photophobia and phonophobia. Also has nausea and vomiting. She also discusses some ill- defined dizziness as well as some balance difficulties. She is currently on amitriptyline for headache prophylaxis. She does discuss using frequent Excedrin Migraine for her headaches. She underwent MRI brain imaging although limited did not show any use of acute intracranial abnormality. There was no mass identified. She states to me today that she was always worried that she may have a brain tumor. At this point I do believe her headache phenotype is likely consistent or suggestive of chronic migraine headaches. This will need to be managed over a period of several weeks to months in the outpatient setting. She may certainly benefit from Botox at one point although she is not interested at this time. I agree with the plan to continue amitriptyline as well as adding gabapentin for neuropathic pain. In regards to her balance she does ambulate with a wide-based gait and has known diabetes. This is likely a sensory ataxic gait and may improve with the use of physical therapy. In regards to the dizziness this is also likely multifactorial and can be seen in chronic migraine, polypharmacy as well as an autonomic component due to her diabetes. At this point I do not believe she needs any additional neurological work-up. She has plans to follow-up with Dr. Galeana at the end of this month. Otherwise I agree with adding low-dose gabapentin for now. Please contact me with any additional questions or concerns. History of Present Illness Reason for Consultation: vertigo, balance Requesting Physician: Haroon Moise MD Attending Physician: Haroon Moise MD History of Present Illness Shiv is a 66 year old female with DM2, diabetic gastroparesis, hypothyroidism, HLD, HTN, PVD, morbid obesity, GERD, PTSD, anemia, generalized anxiety disorder, persistent insomnia, depression, history of endometrial cancer. Who presented to the ED with dizzines and imbalance issues on 05/02/[address] Galeana in our clinic imbalance and ill defined dizziness. She has for the last few months experienced dizziness or an imbalance especially when she first stands up which lasts for several seconds to minutes and then resolves. She went into see her primary care physician yesterday with the chief complaint being imbalance and dizziness. She mentioned that she had some chest pressure and an EKG was obtained and she was sent to the ED. She does have some coronary calcium on her recent CT. She has an echocardiogram pending. Sodium was low on admission. She states her memory is getting bad and the only thing she remembers is going to her PCP and her blood pressure was high. She still has a headache and is dizzy all the time and hard time explaining the dizzy "its just all the time like my head is moving" then headache seem to be originating from her neck in the occiput area but is not tender with palpation. denies, current CP, SOB, abdominal pain, no new bowel or bladder issues, N, V Allergies Allergy/AdvReac Type Severity Reaction Status Date / Time naproxen Allergy Unknown "STROKE-LIKE Verified 05/01/21 18:02 SYMPTOMS" Home Medications Medication Instructions Recorded Confirmed Type amlodipine 10 mg tablet 10 mg PO DAILY 05/01/21 05/01/21 History aspirin 81 mg tablet,delayed 81 mg PO DAILY 05/01/21 05/01/21 History release (Aspirin Low Dose) baclofen 10 mg tablet 10 mg PO HS 05/01/21 05/01/21 History buspirone 5 mg tablet See Rx Instructions .ROUTE .COMPLEX 05/01/21 05/01/21 History diphenhydramine HCl 25 mg capsule 50 mg PO HS 05/01/21 05/01/21 History (Benadryl) docusate sodium 100 mg capsule 100 mg PO BID 05/01/21 05/01/21 History fexofenadine 180 mg tablet 180 mg PO DAILY 05/01/21 05/01/21 History (Juanita Allergy) glucosamine sulfate 1,000 mg 1,000 mg PO BID 05/01/21 05/01/21 History capsule ibuprofen 200 mg tablet 400 mg PO Q6H PRN 05/01/21 05/01/21 History insulin glargine 100 unit/mL (3 42 unit SUBCUT BID 05/01/21 05/01/21 History mL) subcutaneous pen (Lantus Solostar U-100 Insulin) levothyroxine 125 mcg tablet 125 mcg PO QAM 05/01/21 05/01/21 History linagliptin 5 mg tablet (Tradjenta) 5 mg PO QAM 05/01/21 05/01/21 History lisinopril 10 mg tablet 10 mg PO QAM 05/01/21 05/01/21 History metformin 1,000 mg tablet 1,000 mg PO BIDM 05/01/21 05/01/21 History mometasone 50 mcg/actuation nasal 1 spray INTRANASAL QAM 05/01/21 05/01/21 History spray montelukast 10 mg tablet 10 mg PO QAM 05/01/21 05/01/21 History nystatin 100,000 unit/gram topical 1 applic TOPICAL DAILY PRN 05/01/21 05/01/21 History cream pantoprazole 40 mg tablet,delayed 40 mg PO QAM 05/01/21 05/01/21 History release rosuvastatin 20 mg tablet 20 mg PO QPM 05/01/21 05/01/21 History sertraline 100 mg tablet 200 mg PO QAM 05/01/21 05/01/21 History vitamin B complex 1 tab PO QAM 05/01/21 05/01/21 History Patient History Medical History (Updated 05/02/21 @ 15:28 by Dariela Peterson MD, PhD) Anxiety Chronic headache Diabetes Hypertension Hypothyroidism Obesity Surgical History H/O total hysterectomy with bilateral salpingo-oophorectomy (BSO) Family History Mother Congestive heart failure Social History Smoking Status: Never smoker Hx Alcohol Use: No Hx Substance Use: No Communication Ability: Effective Beliefs That Will Affect Care: None Current Living Situation: Spouse Other Information That Helps Us Care for You: No Feels Safe at Home: Yes Safety Concerns: Feels Safe At This Time Assistive Devices: Glasses Review of Systems Review of Systems: All systems reviewed & are unremarkable except as noted in HPI & below Physical Exam Physical Exam: Physical Exam: Constitutional: appearance nourished, healthy and morbidly obese Ears, Nose, Mouth and Throat: mucous membranes moist, no injection and skin normal, eyes normal Cardiovascular: normal S-1 and S-2 and regular rate and rhythm Respiratory: course breath sounds Musculoskeletal: no peripheral edema, negative Spurling to right or left non tender at left occiput Skin: no stigmata of neurocutaneous disease noted and normal and intact Eyes: extraocular muscles intact (EOMI) and pupils equal, round and reactive to light (PERRL)no nystagmus NEUROLOGIC EXAMINATION: Mental status: Alert and interactive Oriented to full date and location Oriented to person Speech fluent with no evidence of aphasia Cranial Nerves smile eye brow raise symmtric Reflexes: Deep tendon reflexes were symmetrical and graded 2/5. Sensory: light cool touch intact Coordination: finger to nose no bipass Gait/Stance: Posture normal. Gait did not assess Motor: Negative for pronator drift of out stretched arms with eyes closed. Strength: hand tube skiver biceps triceps 5/5 bilaterally, hip flex patellar flex ext 5/5 Results & Data ([facility]) Vital Signs (Past 12 Hours) Vital Signs Temp Pulse Pulse Pulse Resp BP BP 05/02/21 11:14 37.2 C 83 18 05/02/21 07:25 36.5 C 79 18 05/02/21 04:38 95 H 05/02/21 03:27 36.7 C 78 17 136/71 05/02/21 01:14 36.9 C 96 H 22 163/82 H 05/02/21 00:16 92 H 19 156/67 H BP Pulse Ox Pulse Ox 05/02/21 11:14 144/79 H 95 05/02/21 07:25 128/72 95 05/02/21 04:38 05/02/21 03:27 95 05/02/21 01:14 98 100 05/02/21 00:16 96 Laboratory Results Abnormal lab results 05/01/21 05/01/21 05/01/21 Range/Units 16:46 16:46 16:46 WBC 12.41 H (4.8-10.8) K/uL RBC (4.2-5.4) M/uL Hgb 10.7 L (12.0-16.0) g/dL Hct 33.3 L (37-47) % MCV 78.7 L (80-100) fL RDW Coeff of Walker 15.9 H (11.5-14.5) % Plt Count 460 H (130-400) K/uL Neut # (Auto) 9.08 H (1.4-6.5) K/uL Hamblen # (Auto) 1.19 H (0.11-0.59) K/uL Immature Gran # (Auto) 0.09 H (0.00-0.02) K/uL D-Dimer 5510 H* (0-500) ug/L FEU Sodium 126 L (136-145) mmol/L Chloride 93 L (98-107) mmol/L BUN/Creatinine Ratio 8.4 L (10-20) Glucose 221 H (70-99) mg/dl POC Glucose (70-99) mg/dl Hemoglobin A1c (4.5-5.6) % Osmolality (280-300) mOsm/kg Magnesium (1.8-2.4) mg/dl Ur Leukocyte Esterase (Negative) Urine WBC (Auto) (0-5) /hpf U Epithel Cells (Auto) (0-5) /lpf Urine Osmolality (500-800) mOsm/kg 05/02/21 05/02/21 05/02/21 Range/Units 05:27 05:27 05:27 WBC 12.25 H (4.8-10.8) K/uL RBC 3.88 L (4.2-5.4) M/uL Hgb 9.8 L (12.0-16.0) g/dL Hct 30.6 L (37-47) % MCV 78.9 L (80-100) fL RDW Coeff of Walker 16.0 H (11.5-14.5) % Plt Count (130-400) K/uL Neut # (Auto) 8.00 H (1.4-6.5) K/uL Hamblen # (Auto) 1.59 H (0.11-0.59) K/uL Immature Gran # (Auto) 0.06 H (0.00-0.02) K/uL D-Dimer (0-500) ug/L FEU Sodium 126 L (136-145) mmol/L Chloride 94 L (98-107) mmol/L BUN/Creatinine Ratio 9.0 L (10-20) Glucose (70-99) mg/dl POC Glucose (70-99) mg/dl Hemoglobin A1c 6.9 H (4.5-5.6) % Osmolality (280-300) mOsm/kg Magnesium 1.7 L (1.8-2.4) mg/dl Ur Leukocyte Esterase (Negative) Urine WBC (Auto) (0-5) /hpf U Epithel Cells (Auto) (0-5) /lpf Urine Osmolality (500-800) mOsm/kg 05/02/21 05/02/21 05/02/21 Range/Units 05:27 05:44 05:44 WBC (4.8-10.8) K/uL RBC (4.2-5.4) M/uL Hgb (12.0-16.0) g/dL Hct (37-47) % MCV (80-100) fL RDW Coeff of Walker (11.5-14.5) % Plt Count (130-400) K/uL Neut # (Auto) (1.4-6.5) K/uL Hamblen # (Auto) (0.11-0.59) K/uL Immature Gran # (Auto) (0.00-0.02) K/uL D-Dimer (0-500) ug/L FEU Sodium (136-145) mmol/L Chloride (98-107) mmol/L BUN/Creatinine Ratio (10-20) Glucose (70-99) mg/dl POC Glucose (70-99) mg/dl Hemoglobin A1c (4.5-5.6) % Osmolality 260 L (280-300) mOsm/kg Magnesium (1.8-2.4) mg/dl Ur Leukocyte Esterase 2+ H (Negative) Urine WBC (Auto) 10-30 H (0-5) /hpf U Epithel Cells (Auto) 10-20 H (0-5) /lpf Urine Osmolality 225 L (500-800) mOsm/kg 05/02/21 Range/Units 07:53 WBC (4.8-10.8) K/uL RBC (4.2-5.4) M/uL Hgb (12.0-16.0) g/dL Hct (37-47) % MCV (80-100) fL RDW Coeff of Walker (11.5-14.5) % Plt Count (130-400) K/uL Neut # (Auto) (1.4-6.5) K/uL Hamblen # (Auto) (0.11-0.59) K/uL Immature Gran # (Auto) (0.00-0.02) K/uL D-Dimer (0-500) ug/L FEU Sodium (136-145) mmol/L Chloride (98-107) mmol/L BUN/Creatinine Ratio (10-20) Glucose (70-99) mg/dl POC Glucose 103 H (70-99) mg/dl Hemoglobin A1c (4.5-5.6) % Osmolality (280-300) mOsm/kg Magnesium (1.8-2.4) mg/dl Ur Leukocyte Esterase (Negative) Urine WBC (Auto) (0-5) /hpf U Epithel Cells (Auto) (0-5) /lpf Urine Osmolality (500-800) mOsm/kg Diagnostic Findings CTA chest- No evidence for pulmonary embolus with limitations as described above. No focal lung consolidations to suggest pneumonia. Moderate calcified plaque within the left coronary artery. MRI in [facility] as outpatient 04/30/21- no acute abnormalities or suspicious mass lesions limited study
[2021-05-02 15:09] LABS: Est GFR (African American) 98.5 ml/min; Potassium 4.2 mmol/L (3.5-5.1)
[2021-05-02 15:10] LABS: BUN Creatinine Ratio 7.2 (10-20); Calcium 9.2 mg/dl (8.5-10.1); Creatinine Clr Calc Pharmacy 103.9 ml/min
--- NOTE | 2021-05-02 15:44 | Hospitalist Progress Note ---
Date of Service May 02, 2021 Assessment & Plan (1) Atypical chest pain: (2) Dizziness: (3) Hyponatremia: Plan: Chest pain, acute coronary syndrome ruled out --Troponins x3 EKG no signs of acute ischemia Echocardiogram: No left-ventricular wall motion abnormalities, EF within normal limits --Evaluated by cardiology service, Dr. Sullivan: No additional cardiac testing at this point --Possibly secondary to underlying reflux Add famotidine 30 minutes before evening meal Patient counseled on lifestyle and dietary changes Dizziness --Unclear etiology --Brain MRI negative for acute CVA --Neurologist consulted Recommend CT head and neck for evaluation of posterior circulation Physical therapy for Isaak maneuver Orthostatic vital signs Gabapentin 100 mg at bedtime x5 days, then 100 mg twice daily x5 days, then 100 mg mg 3 times daily Ophthalmology follow-up as an outpatient Hyponatremia --Unclear etiology --Given IV NSS 500 cc Sodium level 126 now 127 --Nephrology consulted 4. Diabetes: A1c 6.9 Continue Lantus 25 units twice daily with sliding scale for now 5. Hyperlipidemia: Continue statin. 6. Depression: Continue Zoloft. 7. Hypertension: Continue lisinopril and amlodipine. Will monitor the blood pressure. 8. Generalized anxiety disorder: Continue her buspirone. 9. Insomnia: He takes Benadryl at bedtime. 10. Hypothyroidism: On Synthroid. 11. Gastroesophageal reflux disease: On Protonix. 12. Diabetic gastroparesis: --Aspiration precautions 13. Deep venous thrombosis prophylaxis: Sequential compression devices for now. Disposition Pending Admission and Anticipated Discharge Date Admission Date: May 01, 2021 Subjective Follow-up for chest pain, dizziness, etc. Seen resting in bed side chair, comfortable, no distress States chest pain has resolved, has not recurred since admission Dizziness is intermittent Reports posterior neck pain over the past 3 to 4 days, worsened with movement No shortness of breath, palpitations, dizziness, abdominal pain, nausea vomiting, fevers or chills Reports urinary incontinence, frequency No other symptoms Review of Systems Review of Systems: all noted and negative except for above Physical Exam Physical Exam: General- oriented x 3, not in distress, speaks in sentences with no effort or accessory muscle use Head- atraumatic Eyes- PERRL, EOMI, anicteric ENT- oropharynx clear Neck- supple, no JVD, no adenopathy, no thyromegaly; carotids +2/2, no bruits appreciated Positive mild tenderness in the posterior neck No erythema/warmth Lungs- clear to auscultation bilaterally, no rales/wheezes Heart- normal rate, regular rhythm; no murmur, no gallop, no rub appreciated Abdomen- normal bowel sounds, nondistended, soft, nontender, no masses or hepatosplenomegaly Extremities- no pretibial edema, no calf tenderness; peripheral pulses intact Neuro- alert, oriented x 3; CN 2-12 grossly intact; motor 5/5 bilaterally;sensation 100% on all extremities; no other gross focal neurologic deficits Skin- warm & dry Results & Data Results & Data ([facility]) Vital Signs (Past 12 Hours) Vital Signs Temp Pulse Pulse Pulse Resp BP Pulse Ox 05/02/21 15:27 83 05/02/21 15:20 37.2 C 88 20 144/82 H 95 05/02/21 11:14 37.2 C 83 18 144/79 H 95 05/02/21 08:00 77 05/02/21 07:25 36.5 C 79 18 128/72 95 05/02/21 04:38 95 H all noted and reviewed including below
[2021-05-02] MEDS ORDERED: cefTRIAXone SODIUM 2,000 MG in DEXTROSE 5% 50 ML IV SCH (16:00)
[2021-05-02] MEDS ORDERED: diphenhydrAMINE Capsule 25 MG CAP PO SCH (21:00)
[2021-05-02] MEDS ORDERED: BACLOFEN 10 MG TAB PO SCH (21:00)
[2021-05-02] MEDS ORDERED: MONTELUKAST SODIUM 10 MG TABLET PO SCH (21:00)
[2021-05-02] MEDS ORDERED: ROSUVASTATIN CALCIUM 20 MG TAB PO SCH (21:00)
[2021-05-02 21:34] LABS: BUN Creatinine Ratio 7.5 (10-20); Calcium 8.9 mg/dl (8.5-10.1); Creatinine Clr Calc Pharmacy 98.5 ml/min; Est GFR (African American) 92.5 ml/min; Est GFR (Non-African American) 79.8 ml/min; Potassium 4.3 mmol/L (3.5-5.1)
--- NOTE | 2021-05-03 05:28 | Electrocardiogram Report ---
Test Reason : Blood Pressure : / mmHG Vent. Rate : 089 BPM Atrial Rate : 089 BPM P-R Int : 186 ms QRS Dur : 082 ms QT Int : 352 ms P-R-T Axes : 029 -17 065 degrees QTc Int : 428 ms Normal sinus rhythm Normal ECG When compared with ECG of 25-NOV-2010 02:28, Vent. rate has increased BY 31 BPM Confirmed by Sim Cabrera ([id number]) on 05/03/2021 5:28:23 AM Referred By: REFERRED SELF Confirmed By:Sim Cabrera
--- NOTE | 2021-05-03 05:29 | Electrocardiogram Report ---
Test Reason : Blood Pressure : / mmHG Vent. Rate : 089 BPM Atrial Rate : 089 BPM P-R Int : 172 ms QRS Dur : 082 ms QT Int : 362 ms P-R-T Axes : 048 -20 072 degrees QTc Int : 440 ms Normal sinus rhythm Normal ECG When compared with ECG of 01-MAY-2021 17:24, No significant change was found Confirmed by Sim Cabrera ([id number]) on 05/03/2021 5:29:03 AM Referred By: REFERRED SELF Confirmed By:Sim Cabrera
[2021-05-03] MEDS: LEVOTHYROXINE SODIUM 125 MCG TABLET PO SCH (05:41)
--- NOTE | 2021-05-03 05:45 | Electrocardiogram Report ---
Test Reason : Blood Pressure : / mmHG Vent. Rate : 077 BPM Atrial Rate : 077 BPM P-R Int : 188 ms QRS Dur : 086 ms QT Int : 392 ms P-R-T Axes : 010 -16 056 degrees QTc Int : 443 ms Normal sinus rhythm Nonspecific T wave abnormality Abnormal ECG When compared with ECG of 01-MAY-2021 17:36, No significant change Confirmed by Sim Cabrera ([id number]) on 05/03/2021 5:45:04 AM Referred By: REFERRED SELF Confirmed By:Sim Cabrera
[2021-05-03 08:14] LABS: BUN Creatinine Ratio 8.8 (10-20); Creatinine Clr Calc Pharmacy 110.2 ml/min; Est GFR (African American) 105.4 ml/min; Est GFR (Non-African American) 90.9 ml/min; Potassium 4.4 mmol/L (3.5-5.1)
[2021-05-03] MEDS: FEXOFENADINE HCL 180 MG TAB PO SCH (08:14)
[2021-05-03] MEDS: busPIRone 5 MG TAB PO SCH ×2 (08:14→12:55)
[2021-05-03] MEDS: INSULIN ASPART 100 UNITS/ML 3 ML PEN SC SCH ×2 (08:14→12:55)
[2021-05-03] MEDS: lisinopril 10 MG TAB PO SCH (08:14)
[2021-05-03] MEDS: amLODIPine BESYLATE 5 MG TAB PO SCH (08:14)
[2021-05-03] MEDS: FLUTICASONE PROPIONATE NA SPR 16 GM BTL SCH (08:14)
[2021-05-03] MEDS: INSULIN GLARGINE SOLOSTAR 100 UNITS/ML 3 ML PEN SC SCH (08:14)
[2021-05-03] MEDS: SERTRALINE HCL 100 MG TABLET PO SCH (08:14)
[2021-05-03] MEDS: ASPIRIN 81 MG ECTAB PO SCH (08:14)
[2021-05-03] MEDS: VITAMIN B COMPLEX TAB PO SCH (08:14)
[2021-05-03] MEDS: DOCUSATE SODIUM 100 MG CAP PO SCH (08:14)
[2021-05-03] MEDS: PANTOprazole 40 MG TAB PO SCH (08:14)
--- NOTE | 2021-05-03 11:17 | Hospitalist Progress Note ---
Date of Service May 03, 2021 Assessment & Plan (1) Atypical chest pain: (2) Dizziness: (3) Hyponatremia: Plan: Chest pain, acute coronary syndrome ruled out --Troponins x3 EKG no signs of acute ischemia Echocardiogram: No left-ventricular wall motion abnormalities, EF within normal limits --Evaluated by cardiology service, Dr. Sullivan: No additional cardiac testing at this point --Possibly secondary to underlying reflux Add famotidine 30 minutes before evening meal Patient counseled on lifestyle and dietary changes Dizziness, Headaches: possible Chronic Migraine --Unclear etiology --Brain MRI negative for acute CVA --Neurologist consulted, discussed with Dr. Luis Gabapentin 100 mg at bedtime x5 days, then 100 mg twice daily x5 days, then 100 mg mg 3 times daily Ophthalmology follow-up as an outpatient Hyponatremia -- likely SIADH patient also consumes large amount of fluids daily due to dry mouth --Given IV NSS 500 cc Sodium level 126 --> 128 --Nephrology consulted -- encouraged patient to restrict fluids to 2L per day -- repeat BMP next week with PCP ff up Possible UTI -- (+) frequency -- UA suggestive of possible UTI -- Urine culture: pending -- given IV Ceftriaxone -- d/c on Cefdinir will ff up Urine culture result and call patient for advice Diabetes: -- A1c 6.9 -- resume usual meds Hyperlipidemia: Continue statin. Depression: Continue Zoloft. Hypertension: Continue lisinopril and amlodipine. Generalized anxiety disorder: Continue her buspirone. Insomnia: He takes Benadryl at bedtime. Hypothyroidism: On Synthroid. Gastroesophageal reflux disease: On Protonix. Diabetic gastroparesis: --Aspiration precautions Deep venous thrombosis prophylaxis: Sequential compression devices for now. Disposition d/c home ff up with PCP in 1 week Admission and Anticipated Discharge Date Admission Date: May 01, 2021 Subjective ff up for chest pain, hyponatremia, etc seen resting in bedside chair, comfortable in good spirits states she feels better overall no recurrence of chest pain dizziness is better urinary symptoms also improving no fever/chills no other symptoms states she is ready and would like to be discharged today Review of Systems Review of Systems: all noted and negative except for above Physical Exam Physical Exam: General- oriented x 3, not in distress, speaks in sentences with no effort or accessory muscle use Eyes- anicteric Neck- no JVD Lungs- clear breath sounds bilaterally, no rales/wheezes Heart- normal rate, regular rhythm; no murmurs Abdomen- normal bowel sounds, nondistended, soft, nontender Extremities- no pretibial edema, no calf tenderness Neuro- alert, oriented x 3; no gross focal neurologic deficits Skin- warm & dry Results & Data Results & Data ([facility]) Vital Signs (Past 12 Hours) Vital Signs Temp Pulse Pulse Resp BP Pulse Ox 05/03/21 10:10 85 05/03/21 07:58 36.6 C 82 18 171/64 H 97 05/03/21 03:30 36.8 C 91 H 17 150/82 H 98 05/03/21 00:16 85 all noted and reviewed including below
--- NOTE | 2021-05-03 11:51 | Discharge Summary ---
Date of Service May 03, 2021 Admission HPI Per Admitting Provider HISTORY OF PRESENT ILLNESS: This is a 66-year-old female with past medical history significant for type 2 diabetes, diabetic gastroparesis, hypothyroidism, hyperlipidemia, hypertension, peripheral vascular disease, morbid obesity, GERD, post-traumatic stress disorder, anemia, generalized anxiety disorder, persistent insomnia, depression, history of endometrial cancer. Presents with chest pain. The patient says since last 3 months, she is having on an off chest pains everyday, sometime in the morning. They come and go. She is also having dizziness and headaches going on for last 3 months and also cough. She recently was supposed to get MRI scan of the brain, but not able to because she could not tolerate it. She was coughing a lot and moving a lot. Today because of chest pain, she went to the family doctor and EKG showed some T-wave inversion in inferior leads and she was advised to come here. In the ER, she received fentanyl. Currently, she says she is chest pain free. Resting comfortably and hemodynamically stable. Denies any shortness of breath. She still has a lot of dizziness. No blurred visions, no earache, no runny nose, no sore throat, no fevers. Currently, the patient has some nausea, no abdominal pain. Normal bowel and bladder movements. No swelling in the legs. Admission Exam Per Admitting Provider GENERAL: The patient is morbidly obese, not in acute distress. VITAL SIGNS: Temperature 36.8, pulse 92, respiratory rate 19, blood pressure 156/67, oxygen 96% on room air. HEENT: Pupils equal, round and reactive to light. Oral mucosa moist. NECK: No JVD or neck masses. CARDIOVASCULAR: S1 and S2 heard. Regular rate and rhythm. No murmur, no gallop. RESPIRATORY SYSTEM: Normal AP diameter. No accessory muscle use. No wheezing, no crackles. ABDOMEN: Soft, bowel sounds present, nontender, no distention. CENTRAL NERVOUS SYSTEM: Cranial nerves II through XII grossly intact, nonfocal. EXTREMITIES: No edema, no erythema. Principal Diagnosis ATYPICAL CHEST PAIN, ACUTE CORONARY SYNDROME HYPONATREMIA DIZZINESS, HEADACHE Discharge Exam General- oriented x 3, not in distress, speaks in sentences with no effort or accessory muscle use Eyes- anicteric Neck- no JVD Lungs- clear breath sounds bilaterally, no rales/wheezes Heart- normal rate, regular rhythm; no murmurs Abdomen- normal bowel sounds, nondistended, soft, nontender Extremities- no pretibial edema, no calf tenderness Neuro- alert, oriented x 3; no gross focal neurologic deficits Skin- warm & dry Discharge Data Allergies Allergy/AdvReac Type Severity Reaction Status Date / Time naproxen Allergy Unknown "STROKE-LIKE Verified 05/01/21 18:02 SYMPTOMS" Consultations 05/01/21 19:53 ED Decision to Admit Stat 05/02/21 08:00 Consult Cardiology Routine Consult Nephrology Routine 05/02/21 10:30 Consult Neurology Routine Ordered Studies 05/01/21 18:24 CT angio chest PE protocol Stat FINDINGS: Hepatic steatosis. The visualized spleen and adrenal glands are unremarkable. Normal caliber thoracic aorta with no evidence for dissection. Moderate calcified plaque within the left coronary artery. The heart is normal in size. No pleural or pericardial effusions. The main and lobar pulmonary arteries are patent. The majority of the upper lobe segmental and subsegmental pulmonary arteries are patent. The lingular and right middle lobe segmental/subsegmental pulmonary arteries as well as the bilateral lower lobe segmental pulmonary arteries are nondiagnostic due to the respiratory motion artifact. The remaining pulmonary arteries are patent. No mediastinal hilar lymphadenopathy. Normal esophagus. No fractures within the visualized osseous structures. No pneumothorax. The central airways are patent. IMPRESSION: 1. No evidence for pulmonary embolus with limitations as described above. 2. No focal lung consolidations to suggest pneumonia. 3. Moderate calcified plaque within the left coronary artery. Hospital Course (1) Atypical chest pain: (2) Dizziness: (3) Hyponatremia: Chest pain, acute coronary syndrome ruled out --Troponins x 3 EKG no signs of acute ischemia Echocardiogram: No left-ventricular wall motion abnormalities, EF within normal limits --Evaluated by cardiology service, Dr. Sullivan: No additional cardiac testing at this point --Possibly secondary to underlying reflux Add famotidine 30 minutes before evening meal Patient counseled on lifestyle and dietary changes Dizziness, Headaches: possible Chronic Migraine --Unclear etiology --Brain MRI negative for acute CVA --Neurologist consulted, discussed with Dr. Luis Gabapentin 100 mg at bedtime x5 days, then 100 mg twice daily x5 days, then 100 mg mg 3 times daily Ophthalmology follow-up as an outpatient Hyponatremia -- likely SIADH patient also consumes large amount of fluids daily due to dry mouth --Given IV NSS 500 cc Sodium level 126 --> 128 --Nephrology consulted recommend considering lowering dose of Sertraline -- encouraged patient to restrict fluids to 2L per day -- repeat BMP next week with PCP ff up Possible UTI -- (+) frequency -- UA suggestive of possible UTI -- Urine culture: pending -- given IV Ceftriaxone -- d/c on Cefdinir will ff up Urine culture result and call patient for advice Diabetes: -- A1c 6.9 -- resume usual meds Hyperlipidemia: Continue statin. Depression: Continue Zoloft. Hypertension: Continue lisinopril and amlodipine. Generalized anxiety disorder: Continue her buspirone. Insomnia: He takes Benadryl at bedtime. Hypothyroidism: On Synthroid. Gastroesophageal reflux disease: On Protonix. Diabetic gastroparesis: --Aspiration precautions Deep venous thrombosis prophylaxis: Sequential compression devices for now. Disposition d/c home ff up with PCP in 1 week Total Time Total Time Spent Total Time Spent (In Minutes): 45 minutes Discharge Plan Discharge Items Patient Disposition: Home - Self-Care Reason For Visit: CHEST PAIN Discharge Diagnosis: Atypical Chest Pain Low sodium level Activity: Resume your previous activity Non-emergency contact: Primary Care Provider Call non-emergency contact if: you have any medication questions, your symptoms worsen, your pain is not controlled, your pain is worsening, your pain is unusual for you, your pain is concerning for you and you have a fever Follow-up/Referrals: Basil Gaona MD [Physician] - (Date & Time 05/14/2021 12:20 PM Provider Basil Gaona MD Department Neurology [facility] ) Heather Hale MD [Primary Care Provider] - (Date & Time 05/09/2021 12:00 PM Provider Heather Waldron MD Department Family Medicine [facility] ) Diet: Carb Consistent or DM2 and Heart Healthy Addtl Attending Provider Instructions: PLEASE REVIEW YOUR NEW MEDICATION LIST AND FOLLOW INSTRUCTIONS CAREFULLY. YOUR NEW MEDICATIONS INCLUDE: FAMOTIDINE- for possible acid reflux; take at least 30 minutes before dinner GABAPENTIN- for headache and dizzines take as follows: 100mg once a day for 5 days, then 100mg twice a day for 5 days, then 100mg three times a day for 5 days, then STOP CEFDINIR- for possible bladder infection RESUME TAKING YOUR METFORMIN TOMORROW, 05/03/21 CALL PRIMARY CARE PHYSICIAN OR RETURN TO THE ER IMMEDIATELY IF WITH RECURRENCE OR WORSENING OF MEDICAL CONDITION. FOLLOW UP WITH PRIMARY CARE PHYSICIAN NEXT WEEK OUTLINED ABOVE. FOLLOW UP WITH NEUROLOGIST DR. GAONA OUTLINED ABOVE. AVOID HAVING DINNER 2-3 HOURS BEFORE BEDTIME. SLEEP WITH YOUR HEAD ELEVATED AT LEAST 45 DEGREES USING A WEDGE PILLOW. Pending Studies at Discharge: Yes Studies:: REPEAT BLOODWORK TO CHECK SODIUM LEVEL NEXT WEEK C/O PRIMARY CARE PHYSICIAN Stand-Alone Forms: My [facility] I Move You, Smoking Cessation Medications and DC Order Prescriptions: New famotidine 20 mg tablet 20 mg PO HS Qty: 30 RF: 2 gabapentin 100 mg capsule 100 mg PO UD Qty: 90 RF: 1 cefdinir 300 mg capsule 300 mg PO BID Qty: 8 RF: 0 Continued aspirin [Aspirin Low Dose] 81 mg Tablet,Delayed Release (Dr/Ec) 81 mg PO DAILY RF: 0 baclofen 10 mg tablet 10 mg PO HS RF: 0 amlodipine 10 mg tablet 10 mg PO DAILY RF: 0 montelukast 10 mg tablet 10 mg PO QAM RF: 0 buspirone 5 mg tablet See Rx Instructions .ROUTE .COMPLEX RF: 0 sertraline 100 mg tablet 200 mg PO QAM RF: 0 metformin 1,000 mg tablet 1,000 mg PO BIDM RF: 0 lisinopril 10 mg tablet 10 mg PO QAM RF: 0 Tradjenta 5 mg tablet 5 mg PO QAM RF: 0 pantoprazole 40 mg tablet,delayed release (DR/EC) 40 mg PO QAM RF: 0 levothyroxine 125 mcg tablet 125 mcg PO QAM RF: 0 Lantus Solostar U-100 Insulin 100 unit/mL (3 mL) insulin pen 42 unit SUBCUT BID RF: 0 fexofenadine [Juanita Allergy] 180 mg Tablet 180 mg PO DAILY RF: 0 nystatin 100,000 unit/gram Cream 1 applic TOPICAL DAILY PRN (Reason: Rash) RF: 0 docusate sodium 100 mg Capsule 100 mg PO BID RF: 0 mometasone 50 mcg/actuation spray,non-aerosol 1 spray INTRANASAL QAM RF: 0 rosuvastatin 20 mg Tablet 20 mg PO QPM RF: 0 vitamin B complex Tablet 1 tab PO QAM RF: 0 glucosamine sulfate 1,000 mg Capsule 1,000 mg PO BID RF: 0 Discontinued ibuprofen [Excedrin IB] 200 mg Tablet 400 mg PO Q6H PRN (Reason: Pain) RF: 0 diphenhydramine HCl [Benadryl] 25 mg Capsule 50 mg PO HS RF: 0 Discharge Orders: Discharge Order (Routine); Ordered 05/03/21 Ordered By: Haroon Hale/Other Patient Handouts: A1C, High Blood Sugar (Hyperglycemia), Managing Type 2 Diabetes, Special Foot Care for Diabetes Admission Data Admit Date/Time: 05/01/21 23:57 Attending Provider: Haroon Moise Admit Provider: Ketan Obregon Primary Care Provider: Heather Hale Other Providers: Ketan Obregon ; Dariela Peterson ; Jame Sullivan ; Carolyn Coronel ; Basil Gaona ; Carolyn Pickens ; Tomer Luis
--- NOTE | 2021-05-03 13:32 | Electrocardiogram Report ---
Test Reason : Blood Pressure : / mmHG Vent. Rate : 083 BPM Atrial Rate : 083 BPM P-R Int : 178 ms QRS Dur : 084 ms QT Int : 382 ms P-R-T Axes : 050 -26 061 degrees QTc Int : 448 ms Normal sinus rhythm Normal ECG When compared with ECG of 02-MAY-2021 06:02, Nonspecific T wave abnormality no longer evident in Inferior leads Confirmed by Yuan Flores ([id number]) on 05/03/2021 1:31:54 PM Referred By: REFERRED SELF Confirmed By:Yuan Flores
== END 2021-05-03 15:06 | disposition home or self-care (01) | DRG 392 ==
LOC: ED 17:12 → 2N 17:12
DX: E11.65 Type 2 diabetes mellitus with hyperglycemia; Z79.82 Long term (current) use of aspirin; R51.9 Headache, unspecified; E66.01 Morbid (severe) obesity due to excess calories; I25.10 Atherosclerotic heart disease of native coronary artery without angina pectoris; G47.00 Insomnia, unspecified; I10 Essential (primary) hypertension; E22.2 Syndrome of inappropriate secretion of antidiuretic hormone; F43.10 Post-traumatic stress disorder, unspecified; E11.51 Type 2 diabetes mellitus with diabetic peripheral angiopathy without gangrene; Z88.6 Allergy status to analgesic agent; Z68.41 Body mass index [BMI] 40.0-44.9, adult; N39.0 Urinary tract infection, site not specified; E03.9 Hypothyroidism, unspecified; E78.00 Pure hypercholesterolemia, unspecified; K21.9 Gastro-esophageal reflux disease without esophagitis; F41.1 Generalized anxiety disorder; E11.43 Type 2 diabetes mellitus with diabetic autonomic (poly)neuropathy

== ENCOUNTER 2022-12-07 17:47 | Inpatient (IN) ==
[2022-12-07] MEDS ORDERED: SODIUM CHLORIDE 0.9% 500 ML IV SCH (18:15)
[2022-12-07] MEDS ORDERED: SODIUM CHLORIDE 0.9% 1000ML 1,000 ML IV SCH (18:15)
[2022-12-07 18:21] LABS: Basophils # (auto) 0.02 K/uL (0-0.2); Basophils % (auto) 0.2 %; Eosinophils # (auto) 0.36 K/uL (0-0.50); Hematocrit (blood only) 34.1 % (37.0-47.0); Hemoglobin 11.7 g/dl (12.0-16.0); Immature Granulocytes # (auto) 0.06 K/uL (0.01-0.20); Immature Granulocytes % (auto) 0.7 %; Lymphocytes # (auto) 1.54 K/uL (1.2-3.4); Lymphocytes % (auto) 17.1 %; Mean Corpuscular Hemoglobin 30.7 pg (25.0-34.0); Mean Corpuscular Hgb Conc 34.3 g/dL (32.0-36.0); Mean Corpuscular Volume 89.5 fL (80.0-100.0); Mean Platelet Volume 9.6 fL (9.4-12.4); Monocytes # (auto) 0.82 K/uL (0.11-0.59); Monocytes % (auto) 9.1 %; Neutrophils % (auto) 68.9 %; Platelet Count 262 K/uL (130-400); RDW Standard Deviation 42.4 fL (36.4-46.3); Red Blood Count 3.81 M/uL (4.20-5.40)
[2022-12-07 18:32] LABS: Alanine Aminotransferase 11 U/L (7-52); Albumin Globulin Ratio 1.6 (0.9-2); Albumin Level 4.2 gm/dl (3.4-5.0); Alkaline Phosphatase 48 U/L (34-104); Anion Gap 9 (3-11); Aspartate Aminotransferase 17 U/L (13-39); BUN Creatinine Ratio 9.3 (10-20); Bilirubin,Total 0.4 mg/dl (0.2-1.0); Blood Urea Nitrogen 7 mg/dl (6-23); Calcium 8.5 mg/dl (8.6-10.3); Carbon Dioxide 22 mmol/L (21-32); Chloride 94 mmol/L (98-107); Creatine Kinase 61 U/L (26-192); Est GFR (African American) 96.3 ml/min; Est GFR (Non-African American) 83.1 ml/min; Globulin 2.7 gm/dl (2.5-4.0); Glucose 213 mg/dl (70-99(Fasting)); Magnesium 1.5 mg/dl (1.7-2.4); Potassium 3.9 mmol/L (3.5-5.1); Sodium 125 mmol/L (136-145); Total Protein 6.9 gm/dl (6.0-8.3)
--- NOTE | 2022-12-07 18:37 | Emergency Department Note ---
Impression & Plan Seizure ED Provider Note INFORMANT: Patient and family ED PROVIDER(S): Basil Erickson MD CHIEF COMPLAINT: Seizure PLAN: Disposition: Admitted Condition: Good Outpatient prescription management: none Referral: None MEDICAL DECISION MAKING: Patient presented to emergency department after having a witnessed seizure-like episode. She had loss of consciousness with this. Patient underwent a work-up. Head CT was negative. No findings of SDH or other complications from recent head injury. Blood work showed an unremarkable CBC. Except for mild anemia. Patient has chronically low sodium and magnesium. Troponin and TSH were negative. White blood cell count was normal. ECG did not show any obvious problems. Cardiac monitoring revealed no dysrhythmia during short time in the emergency department. I discussed the case with Dr. Ferguson of neurology. The patient does not have a known seizure diagnosis. No outpatient EEG done. He raised the concern for possible cardiac syncope as well and this would fit with the patient's event from earlier in the week causing the head injury. We discussed further evaluation and management in the hospital. He felt this was very reasonable. Patient was in agreement. Consultation was made with Dr. Felton Yanez, [facility] hospitalist service. Patient was evaluated in the ER and admitted for further management. Discussed with manager internet After review of the information above and other included data, I feel the patient requires admission. Triage Nursing notes reviewed and agree them. Vital Signs: reviewed and remarkable for hypertension Prior /Outside records reviewed: Prior ED visit record reviewed. EMS run sheet reviewed. Differential diagnosis: Epilepsy, infection, hypoglycemia, electrolyte abnormalities, cardiac sources, intracerebral event, trauma, toxicologic, neurologic, syncope, as well as other pathologies. Diagnostics, as interpreted by me: ECG: Twelve-lead ECG reveals a sinus rhythm with first-degree block at [address] elevation or depression. PACs or PVCs. Cardiac Monitoring: Cardiac monitoring ordered by me: The patient was placed on continuous cardiac monitoring and observed. It revealed a normal sinus rhythm at 90 beats per minute without ectopy or evidence of dysrhythmia. Medical decision rules: none Imaging studies: Head CT: A noncontrast CT scan of the head was performed and was negative for tumor, fracture, intracranial hemorrhage, or other acute pathology. HPI: The patient is a 67 year old female who presents to the Emergency Room with complaints of seizure. This started just prior to arrival and is described as grand mal, 1 to 2 minutes. Patient was postictal afterwards. She also has some sonorous respirations. The patient also notes the following associated symptoms , feeling shaky and dizzy. Patient had a fall 5 days ago and struck the back of her head. She did require osito at the time. The patient has been given no medication prehospital for relieving factors. Current pain is rated as 4/10. Patient has a headache. Patient has had a headache since the fall and striking her head. Pt denies fevers, chills, diaphoresis, visual changes, neck pain, chest pain, breathing difficulties, nausea, vomiting, abdominal pain, back pain, melena, hematochezia, urinary symptoms, numbness, weakness, lymphadenopathy, rash, or other complaints. PAST MEDICAL HISTORY: See Below, CAD, diabetes PAST SURGICAL HISTORY: See Below, SOCIAL HISTORY: See Below, retired HOME MEDICATIONS: See Below ALLERGIES: See Below VITALS: See Below PHYSICAL EXAMINATION: GENERAL: Awake, alert, comfortable-appearing, in no distress HENT: Normocephalic, healing occipital left-sided laceration with osito in place. Oropharynx unremarkable. EYES: Normal conjunctiva. Sclera non-icteric. PERRLA. EOMI. NECK: Inspection normal. Non-tender. Supple. No nuchal rigidity. FROM. No masses. RESPIRATORY: Clear to auscultation. No wheezes. No rales. Normal respiratory effort. CARDIAC: Normal rate. Normal rhythm. No murmurs. No rubs. Extremities warm and well perfused. Pulses equal. No JVD. GI: Soft, non-distended. No tenderness to palpation. No rebound or guarding. No masses. RECTAL: Deferred. MUSCULOSKELETAL: Atraumatic. Chest examination reveals no tenderness. The back is symmetrical on inspection without obvious abnormality. There is no CVA tenderness to palpation. No joint edema. LOWER EXTREMITIES: Calves are equal size bilaterally and non-tender. No edema. No discoloration. NEURO: Normal sensorium. No sensory or motor deficits noted. Speech normal. No drift. SKIN: No rash or jaundice noted. Past Med/Surg History Medical History Anxiety Chronic headache Diabetes Hypertension Hypothyroidism Obesity Surgical History H/O total hysterectomy with bilateral salpingo-oophorectomy (BSO) Family History Mother Congestive heart failure Social History Smoking Status: Never smoker Hx Alcohol Use: No Hx Substance Use: No Communication Ability: Effective Beliefs That Will Affect Care: None Current Living Situation: Spouse Feels Safe at Home: Yes Assistive Devices: None Allergies Allergies Allergy/AdvReac Type Severity Reaction Status Date / Time naproxen AdvReac Severe "STROKE-LIKE Verified 12/07/22 19:29 SYMPTOMS" Home Meds Home Medications Medication Instructions Recorded Confirmed aspirin 81 mg tablet,delayed 81 mg PO DAILY 05/01/21 12/07/22 release (Amanda Low Dose Aspirin) baclofen 10 mg tablet 10 mg PO TID 05/01/21 12/07/22 buspirone 5 mg tablet See Rx Instructions .Route .COMPLEX 05/01/21 12/07/22 glucosamine sulfate 1,000 mg 1,000 mg PO BID 05/01/21 12/07/22 capsule insulin glargine 100 unit/mL (3 32 unit subcut DAILY 05/01/21 12/07/22 mL) subcutaneous pen (Lantus Solostar U-100 Insulin) lisinopril 10 mg tablet 10 mg PO QAM 05/01/21 12/07/22 metformin 1,000 mg tablet 1,000 mg PO BIDM 05/01/21 12/07/22 mometasone 50 mcg/actuation nasal 2 spray intranasal QAM 05/01/21 12/07/22 spray nystatin 100,000 unit/gram topical 1 applic topical DAILY PRN Rash 05/01/21 12/07/22 cream pantoprazole 40 mg tablet,delayed 40 mg PO QAM 05/01/21 12/07/22 release rosuvastatin 20 mg tablet 20 mg PO QPM 05/01/21 12/07/22 sertraline 100 mg tablet 200 mg PO HS 05/01/21 12/07/22 vitamin B complex 1 tab PO QAM 05/01/21 12/07/22 albuterol sulfate 2.5 mg/3 mL 2.5 mg inhalation DIRECTED PRN 12/07/22 12/07/22 (0.083 %) solution for nebulization Shortness Of Breath Or Wheezing amlodipine 2.5 mg tablet 2.5 mg PO DAILY 12/07/22 12/07/22 ascorbic acid (vitamin C) 500 mg 500 mg PO DAILY 12/07/22 12/07/22 tablet (Vitamin C) buspirone 10 mg tablet 10 mg PO TID 12/07/22 12/07/22 clonidine HCl 0.2 mg tablet 0.2 mg PO HS 12/07/22 12/07/22 docusate sodium 100 mg capsule 100 mg PO DAILY 12/07/22 12/07/22 ferrous sulfate 325 mg (65 mg 325 mg PO DAILY 12/07/22 12/07/22 iron) tablet (iron) galcanezumab-gnlm 120 mg/mL 120 mg subcut MONTHLY 12/07/22 12/07/22 subcutaneous pen injector (Emgality Pen) levothyroxine 100 mcg tablet 100 mcg PO DAILYBB 12/07/22 12/07/22 mirabegron 50 mg tablet,extended 50 mg PO DAILY 12/07/22 12/07/22 release 24 hr (Myrbetriq) semaglutide 0.25 mg or 0.5 mg (2 0.5 mg subcut WK 12/07/22 12/07/22 mg/1.5 mL) subcutaneous pen injector (Ozempic) Results & Data (ED) Vital Signs Vital Signs - 24 hr 12/07/22 17:58 12/07/22 18:04 12/07/22 18:25 Temperature 36.8 C Temperature Source Oral Pulse Rate 94 H 90 Pulse Rate from SpO2 Sensor Respiratory Rate 15 Respiratory Effort / Characteristics Non-Labored Spontaneous Respiratory Depth Normal Blood Pressure 180/102 H Blood Pressure Mean 128 Pulse Oximetry 95 97 Oxygen Delivery Method Room Air Room Air Sepsis New/Unexplained Change in Mental Status No Sepsis Action Taken by Nursing No Action Required 12/07/22 17:55 12/07/22 18:02 12/07/22 18:10 Temperature Temperature Source Pulse Rate 94 H 96 H 89 Pulse Rate from SpO2 Sensor 97 H 94 H 89 Respiratory Rate 22 20 18 Respiratory Effort / Characteristics Respiratory Depth Blood Pressure Blood Pressure Mean Pulse Oximetry 98 98 95 Oxygen Delivery Method Sepsis New/Unexplained Change in Mental Status Sepsis Action Taken by Nursing 12/07/22 18:20 12/07/22 18:30 12/07/22 18:40 Temperature Temperature Source Pulse Rate 92 H 91 H 87 Pulse Rate from SpO2 Sensor 92 H 91 H 88 Respiratory Rate 18 17 18 Respiratory Effort / Characteristics Respiratory Depth Blood Pressure Blood Pressure Mean Pulse Oximetry 94 95 97 Oxygen Delivery Method Sepsis New/Unexplained Change in Mental Status Sepsis Action Taken by Nursing 12/07/22 18:50 12/07/22 19:15 12/07/22 19:15 Temperature Temperature Source Pulse Rate 89 86 Pulse Rate from SpO2 Sensor 89 87 Respiratory Rate 22 21 Respiratory Effort / Characteristics Respiratory Depth Blood Pressure 111/78 Blood Pressure Mean 89 Pulse Oximetry 97 97 Oxygen Delivery Method Sepsis New/Unexplained Change in Mental Status Sepsis Action Taken by Nursing 12/07/22 19:20 12/07/22 19:30 12/07/22 19:31 Temperature Temperature Source Pulse Rate 83 88 Pulse Rate from SpO2 Sensor 83 88 Respiratory Rate 19 18 Respiratory Effort / Characteristics Respiratory Depth Blood Pressure 146/84 H Blood Pressure Mean 104 Pulse Oximetry 98 98 Oxygen Delivery Method Sepsis New/Unexplained Change in Mental Status Sepsis Action Taken by Nursing 12/07/22 19:31 12/07/22 19:40 12/07/22 19:50 Temperature Temperature Source Pulse Rate 84 80 82 Pulse Rate from SpO2 Sensor 83 81 82 Respiratory Rate 19 18 23 Respiratory Effort / Characteristics Respiratory Depth Blood Pressure Blood Pressure Mean Pulse Oximetry 98 98 98 Oxygen Delivery Method Sepsis New/Unexplained Change in Mental Status Sepsis Action Taken by Nursing 12/07/22 20:03 12/07/22 20:10 12/07/22 20:20 Temperature Temperature Source Pulse Rate 82 77 76 Pulse Rate from SpO2 Sensor 82 78 76 Respiratory Rate 21 22 18 Respiratory Effort / Characteristics Respiratory Depth Blood Pressure Blood Pressure Mean Pulse Oximetry 98 98 98 Oxygen Delivery Method Sepsis New/Unexplained Change in Mental Status Sepsis Action Taken by Nursing 12/07/22 20:30 12/07/22 20:30 12/07/22 20:40 Temperature Temperature Source Pulse Rate 76 76 Pulse Rate from SpO2 Sensor 76 77 Respiratory Rate 18 20 Respiratory Effort / Characteristics Respiratory Depth Blood Pressure 159/80 H Blood Pressure Mean 106 Pulse Oximetry 98 97 Oxygen Delivery Method Sepsis New/Unexplained Change in Mental Status Sepsis Action Taken by Nursing 12/07/22 20:50 12/07/22 21:00 12/07/22 21:00 Temperature Temperature Source Pulse Rate 79 80 Pulse Rate from SpO2 Sensor 78 81 Respiratory Rate 23 15 Respiratory Effort / Characteristics Respiratory Depth Blood Pressure 166/92 H Blood Pressure Mean 116 Pulse Oximetry 98 97 Oxygen Delivery Method Sepsis New/Unexplained Change in Mental Status Sepsis Action Taken by Nursing 12/07/22 21:10 12/07/22 21:20 12/07/22 21:30 Temperature Temperature Source Pulse Rate 76 79 Pulse Rate from SpO2 Sensor 76 79 Respiratory Rate 16 17 Respiratory Effort / Characteristics Respiratory Depth Blood Pressure 172/88 H Blood Pressure Mean 116 Pulse Oximetry 98 97 Oxygen Delivery Method Sepsis New/Unexplained Change in Mental Status Sepsis Action Taken by Nursing 12/07/22 21:30 12/07/22 21:40 12/07/22 21:50 Temperature Temperature Source Pulse Rate 76 76 75 Pulse Rate from SpO2 Sensor 76 76 76 Respiratory Rate 15 22 19 Respiratory Effort / Characteristics Respiratory Depth Blood Pressure Blood Pressure Mean Pulse Oximetry 98 98 97 Oxygen Delivery Method Sepsis New/Unexplained Change in Mental Status Sepsis Action Taken by Nursing Laboratory Data 12/07/22 17:50 12/07/22 17:50 Lab Results 12/07/22 12/07/22 12/07/22 Range/Units 17:50 17:50 17:50 WBC 9.00 (4.8-10.8) K/ul RBC 3.81 L (4.20-5.40) M/uL Hgb 11.7 L (12.0-16.0) g/dl Hct 34.1 L (37.0-47.0) % MCV 89.5 (80.0-100.0) fL MCH 30.7 (25.0-34.0) pg MCHC 34.3 (32.0-36.0) g/dL RDW Std Deviation 42.4 (36.4-46.3) fL RDW Coeff of Walker 13.0 (11.5-14.5) % Plt Count 262 (130-400) K/uL MPV 9.6 (9.4-12.4) fL Immature Gran % (Auto) 0.7 % Neut % (Auto) 68.9 % Lymph % (Auto) 17.1 % [place] % (Auto) 9.1 % Eos % (Auto) 4.0 % Baso % (Auto) 0.2 % Neut # (Auto) 6.20 (1.40-6.50) K/uL Lymph # (Auto) 1.54 (1.2-3.4) K/uL [place] # (Auto) 0.82 H (0.11-0.59) K/uL Eos # (Auto) 0.36 (0-0.50) K/uL Baso # (Auto) 0.02 (0-0.2) K/uL Immature Gran # (Auto) 0.06 (0.01-0.20) K/uL Sodium 125 L (136-145) mmol/L Potassium 3.9 (3.5-5.1) mmol/L Chloride 94 L (98-107) mmol/L Carbon Dioxide 22 (21-32) mmol/L Anion Gap 9 (3-11) BUN 7 (6-23) mg/dl Creatinine 0.75 (0.6-1.2) mg/dl Est Cr Clr Drug Dosing Not Reportable Est GFR ( Amer) 96.3 ml/min Est GFR (Non-Af Amer) 83.1 ml/min BUN/Creatinine Ratio 9.3 L (10-20) Glucose 213 H (70-99(Fasting)) mg/dl Osmolality (280-300) mOsm/kg Calcium 8.5 L (8.6-10.3) mg/dl Magnesium 1.5 L (1.7-2.4) mg/dl Total Bilirubin 0.4 (0.2-1.0) mg/dl AST 17 (13-39) U/L ALT 11 (7-52) U/L Alkaline Phosphatase 48 (34-104) U/L Total Creatine Kinase 61 (26-192) U/L Troponin I High Sens 5.8 (0-14) pg/ml Total Protein 6.9 (6.0-8.3) gm/dl Albumin 4.2 (3.4-5.0) gm/dl Globulin 2.7 (2.5-4.0) gm/dl Albumin/Globulin Ratio 1.6 (0.9-2) TSH 2.119 (0.300-4.500) uIu/ml Urine Color Urine Appearance (Clear) Urine pH (4.5-7.5) Ur Specific [place] (1.000-1.030) Urine Protein (Negative) Urine Glucose (UA) (Negative) Urine Ketones (Negative) Urine Blood (Negative) Urine Nitrite (Negative) Urine Bilirubin (Negative) Urine Urobilinogen (Negative) Ur Leukocyte Esterase (Negative) Urine WBC (Auto) (0-5) /hpf Urine RBC (Auto) (0-4) /hpf U Hyaline Cast (Auto) (0-5) /lpf U Epithel Cells (Auto) (0-5) /lpf Urine Bacteria (Auto) (Negative) Urine Osmolality (500-800) mOsm/kg Ur Random Sodium mmol/L SARS-CoV-2, RNA, NAAT (NEGATIVE) 12/07/22 12/07/22 12/07/22 Range/Units 17:50 18:20 20:00 WBC (4.8-10.8) K/ul RBC (4.20-5.40) M/uL Hgb (12.0-16.0) g/dl Hct (37.0-47.0) % MCV (80.0-100.0) fL MCH (25.0-34.0) pg MCHC (32.0-36.0) g/dL RDW Std Deviation (36.4-46.3) fL RDW Coeff of Walker (11.5-14.5) % Plt Count (130-400) K/uL MPV (9.4-12.4) fL Immature Gran % (Auto) % Neut % (Auto) % Lymph % (Auto) % [place] % (Auto) % Eos % (Auto) % Baso % (Auto) % Neut # (Auto) (1.40-6.50) K/uL Lymph # (Auto) (1.2-3.4) K/uL [place] # (Auto) (0.11-0.59) K/uL Eos # (Auto) (0-0.50) K/uL Baso # (Auto) (0-0.2) K/uL Immature Gran # (Auto) (0.01-0.20) K/uL Sodium (136-145) mmol/L Potassium (3.5-5.1) mmol/L Chloride (98-107) mmol/L Carbon Dioxide (21-32) mmol/L Anion Gap (3-11) BUN (6-23) mg/dl Creatinine (0.6-1.2) mg/dl Est Cr Clr Drug Dosing Est GFR ( Amer) ml/min Est GFR (Non-Af Amer) ml/min BUN/Creatinine Ratio (10-20) Glucose (70-99(Fasting)) mg/dl Osmolality 269 L (280-300) mOsm/kg Calcium (8.6-10.3) mg/dl Magnesium (1.7-2.4) mg/dl Total Bilirubin (0.2-1.0) mg/dl AST (13-39) U/L ALT (7-52) U/L Alkaline Phosphatase (34-104) U/L Total Creatine Kinase (26-192) U/L Troponin I High Sens (0-14) pg/ml Total Protein (6.0-8.3) gm/dl Albumin (3.4-5.0) gm/dl Globulin (2.5-4.0) gm/dl Albumin/Globulin Ratio (0.9-2) TSH (0.300-4.500) uIu/ml Urine Color Yellow Urine Appearance Clear (Clear) Urine pH 5.5 (4.5-7.5) Ur Specific [place] 1.007 (1.000-1.030) Urine Protein Negative (Negative) Urine Glucose (UA) Negative (Negative) Urine Ketones Negative (Negative) Urine Blood Negative (Negative) Urine Nitrite Negative (Negative) Urine Bilirubin Negative (Negative) Urine Urobilinogen Negative (Negative) Ur Leukocyte Esterase 2+ H (Negative) Urine WBC (Auto) 10-30 H (0-5) /hpf Urine RBC (Auto) 0-4 (0-4) /hpf U Hyaline Cast (Auto) 1-5 (0-5) /lpf U Epithel Cells (Auto) >30 H (0-5) /lpf Urine Bacteria (Auto) Negative (Negative) Urine Osmolality (500-800) mOsm/kg Ur Random Sodium mmol/L SARS-CoV-2, RNA, NAAT NEGATIVE (NEGATIVE) 12/07/22 12/07/22 Range/Units 20:00 20:00 WBC (4.8-10.8) K/ul RBC (4.20-5.40) M/uL Hgb (12.0-16.0) g/dl Hct (37.0-47.0) % MCV (80.0-100.0) fL MCH (25.0-34.0) pg MCHC (32.0-36.0) g/dL RDW Std Deviation (36.4-46.3) fL RDW Coeff of Walker (11.5-14.5) % Plt Count (130-400) K/uL MPV (9.4-12.4) fL Immature Gran % (Auto) % Neut % (Auto) % Lymph % (Auto) % [place] % (Auto) % Eos % (Auto) % Baso % (Auto) % Neut # (Auto) (1.40-6.50) K/uL Lymph # (Auto) (1.2-3.4) K/uL [place] # (Auto) (0.11-0.59) K/uL Eos # (Auto) (0-0.50) K/uL Baso # (Auto) (0-0.2) K/uL Immature Gran # (Auto) (0.01-0.20) K/uL Sodium (136-145) mmol/L Potassium (3.5-5.1) mmol/L Chloride (98-107) mmol/L Carbon Dioxide (21-32) mmol/L Anion Gap (3-11) BUN (6-23) mg/dl Creatinine (0.6-1.2) mg/dl Est Cr Clr Drug Dosing Est GFR ( Amer) ml/min Est GFR (Non-Af Amer) ml/min BUN/Creatinine Ratio (10-20) Glucose (70-99(Fasting)) mg/dl Osmolality (280-300) mOsm/kg Calcium (8.6-10.3) mg/dl Magnesium (1.7-2.4) mg/dl Total Bilirubin (0.2-1.0) mg/dl AST (13-39) U/L ALT (7-52) U/L Alkaline Phosphatase (34-104) U/L Total Creatine Kinase (26-192) U/L Troponin I High Sens (0-14) pg/ml Total Protein (6.0-8.3) gm/dl Albumin (3.4-5.0) gm/dl Globulin (2.5-4.0) gm/dl Albumin/Globulin Ratio (0.9-2) TSH (0.300-4.500) uIu/ml Urine Color Urine Appearance (Clear) Urine pH (4.5-7.5) Ur Specific [place] (1.000-1.030) Urine Protein (Negative) Urine Glucose (UA) (Negative) Urine Ketones (Negative) Urine Blood (Negative) Urine Nitrite (Negative) Urine Bilirubin (Negative) Urine Urobilinogen (Negative) Ur Leukocyte Esterase (Negative) Urine WBC (Auto) (0-5) /hpf Urine RBC (Auto) (0-4) /hpf U Hyaline Cast (Auto) (0-5) /lpf U Epithel Cells (Auto) (0-5) /lpf Urine Bacteria (Auto) (Negative) Urine Osmolality 182 L (500-800) mOsm/kg Ur Random Sodium 30 mmol/L SARS-CoV-2, RNA, NAAT (NEGATIVE) Administered Medications Buspirone HCl (Buspirone 15 Mg Tab) 15 mg PO TID PARVEEN Stop: 01/06/23 23:41 Last Admin: 12/08/22 00:59 Dose: 15 mg Documented By: LUCY Insulin Aspart (Insulin Aspart Per Unit Charge) 0 units SC ACHS PARVEEN Stop: 01/06/23 23:41 Last Admin: 12/08/22 00:44 Dose: Not Given Documented By: LUCY Co-signed By: JR Discontinued Medications Amlodipine Besylate (Amlodipine Besylate 5 Mg Tab) 2.5 mg PO NOW ONE Stop: 12/07/22 21:59 Last Admin: 12/07/22 22:23 Dose: 2.5 mg Documented By: TANJA Gadobutrol (Gadobutrol 10ml Vial) 10 ml IV ONCE ONE Stop: 12/07/22 23:29 Last Admin: 12/07/22 23:28 Dose: 10 ml Documented By: MICHAEL Sodium Chloride (Nss) 500 mls @ 999 mls/hr IV .Q31M PARVEEN Stop: 12/07/22 18:45 Last Infusion: 12/07/22 19:48 Dose: 0 mls/hr Documented By: Admin: 12/07/22 19:16 Dose: 999 mls/hr Documented By: TANJA Sodium Chloride (Nss 1000ml) 1,000 mls @ 125 mls/hr IV .Q8H PARVEEN Stop: 12/08/22 02:14 Last Infusion: 12/08/22 00:55 Dose: 0 mls/hr Documented By: Admin: 12/07/22 19:16 Dose: 125 mls/hr Documented By: TANJA Magnesium Sulfate/Dextrose (Magnesium Sulfate / D5w) 1 gm in 100 mls @ 50 mls/hr IV Q2H PARVEEN Stop: 12/08/22 00:44 Last Admin: 12/07/22 23:58 Dose: 50 mls/hr Documented By: Infusion: 12/07/22 22:54 Dose: 50 mls/hr Documented By: Admin: 12/07/22 20:54 Dose: 50 mls/hr Documented By: TANJA Trolamine Salicylate (Trolamine Salicylate 10% Crm 255 Appln/85 Gm Tube) 1 appln EXT NOW STA Stop: 12/07/22 21:58 Last Admin: 12/07/22 22:25 Dose: 1 appln Documented By: TANJA Imaging Data Radiologist's Impression: Chest X-Ray 12/07/22 18:14 XR chest 1V portable CLINICAL HISTORY: weakness TECHNIQUE: Single frontal radiograph of the chest was obtained. Comparison: Comparison is made to chest radiograph 05/01/2021 FINDINGS: Exam is limited by underpenetration. The cardiomediastinal silhouette is normal. The lungs are clear. No evidence of pleural effusion or pneumothorax. IMPRESSION: No acute chest disease. ACT 112: Negative or not required by law. Electronically signed by: Yung Ramirez M.D. 12/07/2022 7:[address] 12/07/22 18:14 CT head/brain wo con CLINICAL HISTORY: seizure Technique: Contiguous axial CT images of the head were acquired from the base of the skull to the vertex without intravenous contrast administration. Images were viewed in brain, subdural and bone windows. Automated dose lowering techniques and/or adjustment according to patient size were utilized for this exam. Comparison: Comparison is made to CT head 12/01/2022 Findings: The ventricles, basal cisterns, and cerebral sulci are normal. There is no acute intracranial hemorrhage or evidence of acute territorial infarction. Neither mass effect, shift of the midline structures, nor abnormal extra-axial fluid collections are shown. Imaged portions of the paranasal sinuses and mastoid air cells are clear. The orbits appear normal. There are no acute fractures of the calvaria. Scalp swelling is seen in the left parietal soft tissues. Impression: No acute intracranial hemorrhage or skull fractures. Scalp swelling is seen in the left parietal soft tissues with surgical osito in place. ACT 112: Negative or not required by law. Electronically signed by: Yung Ramirez M.D. 12/07/2022 7:23 PM Discharge Plan Visit Data Chief Complaint: Seizure Stated Complaint: SEIZURE ED Provider: Basil Erickson Discharge Problem: Seizure Discharge Instructions Interventions: ED Discharge Assessment Last Done: 12/07/22 23:41
[2022-12-07 18:39] LABS: Troponin I High Sensitivity 5.8 pg/ml (0-14)
--- NOTE | 2022-12-07 19:25 | CT Scan Report ---
CT head/brain wo con CLINICAL HISTORY: seizure Technique: Contiguous axial CT images of the head were acquired from the base of the skull to the nano ravi without intravenous contrast administration. Images were viewed in brain, subdural and [facility]. Automated dose lowering techniques and/or adjustment according to patient size were utilized for this exam. Comparison: Comparison is made to CT head 12/01/2022 Findings: The ventricles, basal cisterns, and cerebral sulci are normal. There is no acute intracranial hemorrh age or evidence of acute territorial infarction. Neither mass effect, shift of the midline structures , nor abnormal extra-axial fluid collections are shown. Imaged portions of the paranasal sinuses and mastoid air cells are clear. The orbits appear normal. There are no acute fractures of the calvaria. Scalp swelling is seen in the left parietal soft tissu es. Impression: No acute intracranial hemorrhage or skull fractures. Scalp swelling is seen in the left parietal soft tissues with surgical osito in place. ACT 112: Negative or not required by law. Electronically signed by: Yung Ramirez M.D. 12/07/2022 7:23 PM
--- NOTE | 2022-12-07 19:59 | XRay Report ---
XR chest 1V portable CLINICAL HISTORY: weakness TECHNIQUE: Single frontal radiograph of the chest was obtained. Comparison: Comparison is made to chest radiograph 05/01/2021 FINDINGS: Exam is limited by underpenetration. The cardiomediastinal silhouette is normal. The lungs are clear. No evidence of pleural effusion or pneumothorax. IMPRESSION: No acute chest disease. ACT 112: Negative or not required by law. Electronically signed by: Yung Ramirez M.D. 12/07/2022 7:57 PM
[2022-12-07 20:46] LABS: Appearance Urine Clear (Clear); Bacteria Urine Automated Negative (Negative); Bilirubin Urine Negative (Negative); Blood Urine Negative (Negative); Color Urine Yellow; Epithelial Cell Urine Auto >30 /lpf (0-5); Glucose Urine UA Negative (Negative); Ketones Urine Negative (Negative); Leukocyte Esterase Urine 2+ (Negative); Nitrite Urine Negative (Negative); Protein Urine Negative (Negative); RBC Urine Automated 0-4 /hpf (0-4); Specific Gravity Urine 1.007 (1.000-1.030); Urobilinogen Urine Negative (Negative); pH Urine 5.5 (4.5-7.5)
[2022-12-07] MEDS: MAGNESIUM SULFATE / D5W 1 GM/100 ML BAG IV SCH ×2 (20:54→23:58)
--- NOTE | 2022-12-07 21:47 | History & Physical Report ---
Date of Service December 07, 2022 Assessment & Plan (1) Seizure: Plan: Recurrent event Triggered by bright light as per patient account Possibly precipitated by acute on chronic hyponatremia, history SIADH; complicated UTI Rule out brain tumor given worsening migraine headache complaints Recent syncopal event ro cardiac dysfunction hypertension, slight elevated hyperlipidemia, on statin Rx DM2 insulin requiring, well controlled as of recent hemoglobin A1c of 5.15 August 2022 endometrial cancer status post surgery mild cognitive impairment as per records GERD, stable on regimen anxiety/mood disorder, patient anxious on exam Anemia secondary to scalp hematoma from recent head injury Medical telemetry Seizure precautions Ativan as needed active seizures EEG, MRI brain for seizure work-up Recheck serum sodium after initial fluid bolus at the ER, hyponatremia work-up, may need Nephrology eval, daily fluid restriction of 1.5 L Urine CS, cefepime Neurology consult re: recurrent seizures (ER provider already in touch with Dr. Chisholm) Hold off on maintenance AED Rx until patient seen by Neurology. TTE re: syncope Basal bolus insulin ISS BG goal 1 10-1 40, carb count coverage, update hemoglobin A1c DVT prophylaxis. SCDs RE recent scalp hematoma Full code Patient requesting update providers. Mr. Hal Gutierrez, contact #[phone]. Text document was generated using [employer] voice recognition software. It may contain grammatical or spelling errors. Kindly contact undersigned for clarification of any documentation item in question. History of Present Illness Chief Complaint: Possible seizures Primary Care Provider: Lake Hopkins DO History obtained from patient, family, and records. Medical history significant for hypertension, hyperlipidemia, DM2 insulin requiring, chronic hyponatremia secondary to SIADH, endometrial cancer status post surgery, chronic migraine, cervicogenic headache as per records, mild cognitive impairment as per records, essential tremor as per records, GERD, anxiety/mood disorder, urinary incontinence. Last confinement April 2021 for atypical chest pain, ACS ruled out. Patient diagnosed to have migraine the last few years. Migraine headache somewhat worsening of late as per patient. Triggered by bright lights. Emgality injections not working as per patient. Last month, patient had a witnessed seizure at home by a family member. Seizure triggered by bright light exposure as per patient. No consultations done. Patient seen at the ER last week for head trauma following a fall. Possible syncopal event after exposure to bright light at a parking lot. No weakness seizures at time of event. [place] applied on patient's scalp laceration. Patient was a passenger in a personal vehicle today when she was noted to have generalized tonic-clonic seizures by family. Episode lasting about a minute. No tongue biting or incontinence. Patient confused after episode. Patient complaining of headache symptoms. No chest pain, no SOB. Dysuria symptoms without abdominal or flank pain. Admits to going over 32 ounce daily fluid restriction for her hyponatremia. Patient has no recollection of seizure event but recalls being bothered by bright light again. Patient brought by family to the ER Medical History as above Surgical History : D&C, RUTHY, oophorectomy, BTL, IUD placement Family History : Alcoholism, breast cancer, DM, heart disease, dementia Personal/Social history : Non-smoker, no EtOH intake, prior work as a caregiver Allergies Allergy/AdvReac Type Severity Reaction Status Date / Time naproxen AdvReac Severe "STROKE-LIKE Verified 12/07/22 19:29 SYMPTOMS" Home Medications Medication Instructions Recorded Confirmed Type aspirin 81 mg tablet,delayed 81 mg PO DAILY 05/01/21 12/07/22 History release (Amanda Low Dose Aspirin) baclofen 10 mg tablet 10 mg PO TID 05/01/21 12/07/22 History buspirone 5 mg tablet See Rx Instructions .Route .COMPLEX 05/01/21 12/07/22 History glucosamine sulfate 1,000 mg 1,000 mg PO BID 05/01/21 12/07/22 History capsule insulin glargine 100 unit/mL (3 32 unit subcut DAILY 05/01/21 12/07/22 History mL) subcutaneous pen (Lantus Solostar U-100 Insulin) lisinopril 10 mg tablet 10 mg PO QAM 05/01/21 12/07/22 History metformin 1,000 mg tablet 1,000 mg PO BIDM 05/01/21 12/07/22 History mometasone 50 mcg/actuation nasal 2 spray intranasal QAM 05/01/21 12/07/22 History spray nystatin 100,000 unit/gram topical 1 applic topical DAILY PRN Rash 05/01/21 12/07/22 History cream pantoprazole 40 mg tablet,delayed 40 mg PO QAM 05/01/21 12/07/22 History release rosuvastatin 20 mg tablet 20 mg PO QPM 05/01/21 12/07/22 History sertraline 100 mg tablet 200 mg PO HS 05/01/21 12/07/22 History vitamin B complex 1 tab PO QAM 05/01/21 12/07/22 History albuterol sulfate 2.5 mg/3 mL 2.5 mg inhalation DIRECTED PRN 12/07/22 12/07/22 History (0.083 %) solution for nebulization Shortness Of Breath Or Wheezing amlodipine 2.5 mg tablet 2.5 mg PO DAILY 12/07/22 12/07/22 History ascorbic acid (vitamin C) 500 mg 500 mg PO DAILY 12/07/22 12/07/22 History tablet (Vitamin C) buspirone 10 mg tablet 10 mg PO TID 12/07/22 12/07/22 History clonidine HCl 0.2 mg tablet 0.2 mg PO HS 12/07/22 12/07/22 History docusate sodium 100 mg capsule 100 mg PO DAILY 12/07/22 12/07/22 History ferrous sulfate 325 mg (65 mg 325 mg PO DAILY 12/07/22 12/07/22 History iron) tablet (iron) galcanezumab-gnlm 120 mg/mL 120 mg subcut MONTHLY 12/07/22 12/07/22 History subcutaneous pen injector (Emgality Pen) levothyroxine 100 mcg tablet 100 mcg PO DAILYBB 12/07/22 12/07/22 History mirabegron 50 mg tablet,extended 50 mg PO DAILY 12/07/22 12/07/22 History release 24 hr (Myrbetriq) semaglutide 0.25 mg or 0.5 mg (2 0.5 mg subcut WK 12/07/22 12/07/22 History mg/1.5 mL) subcutaneous pen injector (Ozempic) Past Med/Surg History Medical History Anxiety Chronic headache Diabetes Hypertension Hypothyroidism Obesity Surgical History H/O total hysterectomy with bilateral salpingo-oophorectomy (BSO) Family History Mother Congestive heart failure Social History Smoking Status: Former smoker Second Hand Exposure: No; Do You Dip or Chew Tobacco: No; Tobacco Cessation Education Requested by Patient: No Hx Alcohol Use: No Hx Substance Use: No Preferred Language: [place] Communication Ability: Effective 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 Beliefs That Will Affect Care: None Current Living Situation: Spouse Current Living Situation Comment: Lives with and dog Other Information That Helps Us Care for You: No Feels Safe at Home: Yes Safety Concerns: Feels Safe At This Time Assistive Devices: None Assistive Devices Comment: Patient feels that she may need to begin utilizing a cane at times Review of Systems Review of Systems: As per HPI, all other systems reviewed and negative Physical Exam Physical Exam: GENERAL: Comfortable, anxious, obese, no respiratory distress SKIN: Pallor, warm HEENT: Tender swelling with osito noted over left parietal scalp, pale palpebral conjunctivae, no ptosis, dry buccal mucosa NECK : Supple, short neck, minimal left cervical tenderness CHEST : Decreased breath sounds, no tenderness HEART : RRR, no obvious murmurs ABDOMEN: Some distention, nontender EXTREMITIES : Minimal LE swelling, no LE tenderness, no other conspicuous deformities noted NEUROLOGIC : Coherent, no facial asymmetry, gait and stance not assessed Results & Data Results & Data Vital Signs (Past 12 Hours) Vital Signs Temp Pulse Resp BP Pulse Ox O2 Del Method 12/07/22 19:20 83 19 98 12/07/22 19:15 86 21 97 12/07/22 19:15 111/78 12/07/22 18:50 89 22 97 12/07/22 18:40 87 18 97 12/07/22 18:30 91 H 17 95 12/07/22 18:20 92 H 18 94 12/07/22 18:10 89 18 95 12/07/22 18:02 96 H 20 98 12/07/22 17:55 94 H 22 98 12/07/22 18:25 97 Room Air 12/07/22 18:04 36.8 C 90 15 180/102 H 95 Room Air 12/07/22 17:58 94 H Laboratory Results Laboratory Results WBC 9.00 K/ul (4.8-10.8) 12/07/22 17:50 RBC 3.81 M/uL (4.20-5.40) L 12/07/22 17:50 Hgb 11.7 g/dl (12.0-16.0) L 12/07/22 17:50 Hct 34.1 % (37.0-47.0) L 12/07/22 17:50 MCV 89.5 fL (80.0-100.0) 12/07/22 17:50 MCH 30.7 pg (25.0-34.0) 12/07/22 17:50 MCHC 34.3 g/dL (32.0-36.0) 12/07/22 17:50 RDW Std Deviation 42.4 fL (36.4-46.3) 12/07/22 17:50 RDW Coeff of Walker 13.0 % (11.5-14.5) 12/07/22 17:50 Plt Count 262 K/uL (130-400) 12/07/22 17:50 MPV 9.6 fL (9.4-12.4) 12/07/22 17:50 Immature Gran % (Auto) 0.7 % 12/07/22 17:50 Neut % (Auto) 68.9 % 12/07/22 17:50 Lymph % (Auto) 17.1 % 12/07/22 17:50 Nelson % (Auto) 9.1 % 12/07/22 17:50 Eos % (Auto) 4.0 % 12/07/22 17:50 Baso % (Auto) 0.2 % 12/07/22 17:50 Neut # (Auto) 6.20 K/uL (1.40-6.50) 12/07/22 17:50 Lymph # (Auto) 1.54 K/uL (1.2-3.4) 12/07/22 17:50 Nelson # (Auto) 0.82 K/uL (0.11-0.59) H 12/07/22 17:50 Eos # (Auto) 0.36 K/uL (0-0.50) 12/07/22 17:50 Baso # (Auto) 0.02 K/uL (0-0.2) 12/07/22 17:50 Immature Gran # (Auto) 0.06 K/uL (0.01-0.20) 12/07/22 17:50 Sodium 125 mmol/L (136-145) L 12/07/22 17:50 Potassium 3.9 mmol/L (3.5-5.1) 12/07/22 17:50 Chloride 94 mmol/L (98-107) L 12/07/22 17:50 Carbon Dioxide 22 mmol/L (21-32) 12/07/22 17:50 Anion Gap 9 (3-11) 12/07/22 17:50 BUN 7 mg/dl (6-23) 12/07/22 17:50 Creatinine 0.75 mg/dl (0.6-1.2) 12/07/22 17:50 Est Cr Clr Drug Dosing Not Reportable 12/07/22 17:50 Est GFR ( Amer) 96.3 ml/min 12/07/22 17:50 Est GFR (Non-Af Amer) 83.1 ml/min 12/07/22 17:50 BUN/Creatinine Ratio 9.3 (10-20) L 12/07/22 17:50 Glucose 213 mg/dl (70-99(Fasting)) H 12/07/22 17:50 Osmolality 269 mOsm/kg (280-300) L 12/07/22 17:50 Calcium 8.5 mg/dl (8.6-10.3) L 12/07/22 17:50 Magnesium 1.5 mg/dl (1.7-2.4) L 12/07/22 17:50 Total Bilirubin 0.4 mg/dl (0.2-1.0) 12/07/22 17:50 AST 17 U/L (13-39) 12/07/22 17:50 ALT 11 U/L (7-52) 12/07/22 17:50 Alkaline Phosphatase 48 U/L (34-104) 12/07/22 17:50 Total Creatine Kinase 61 U/L (26-192) 12/07/22 17:50 Troponin I High Sens 5.8 pg/ml (0-14) 12/07/22 17:50 Total Protein 6.9 gm/dl (6.0-8.3) 12/07/22 17:50 Albumin 4.2 gm/dl (3.4-5.0) 12/07/22 17:50 Globulin 2.7 gm/dl (2.5-4.0) 12/07/22 17:50 Albumin/Globulin Ratio 1.6 (0.9-2) 12/07/22 17:50 TSH 2.119 uIu/ml (0.300-4.500) 12/07/22 17:50 Urine Color Yellow 12/07/22 20:00 Urine Appearance Clear (Clear) 12/07/22 20:00 Urine pH 5.5 (4.5-7.5) 12/07/22 20:00 Ur Specific [place] 1.007 (1.000-1.030) 12/07/22 20:00 Urine Protein Negative (Negative) 12/07/22 20:00 Urine Glucose (UA) Negative (Negative) 12/07/22 20:00 Urine Ketones Negative (Negative) 12/07/22 20:00 Urine Blood Negative (Negative) 12/07/22 20:00 Urine Nitrite Negative (Negative) 12/07/22 20:00 Urine Bilirubin Negative (Negative) 12/07/22 20:00 Urine Urobilinogen Negative (Negative) 12/07/22 20:00 Ur Leukocyte Esterase 2+ (Negative) H 12/07/22 20:00 Urine WBC (Auto) 10-30 /hpf (0-5) H 12/07/22 20:00 Urine RBC (Auto) 0-4 /hpf (0-4) 12/07/22 20:00 U Hyaline Cast (Auto) 1-5 /lpf (0-5) 12/07/22 20:00 U Epithel Cells (Auto) >30 /lpf (0-5) H 12/07/22 20:00 Urine Bacteria (Auto) Negative (Negative) 12/07/22 20:00 Urine Osmolality 182 mOsm/kg (500-800) L 12/07/22 20:00 Ur Random Sodium 30 mmol/L 12/07/22 20:00 SARS-CoV-2, RNA, NAAT NEGATIVE (NEGATIVE) 12/07/22 18:20 Impressions Chest X-Ray 12/07/22 18:14 XR chest 1V portable CLINICAL HISTORY: weakness TECHNIQUE: Single frontal radiograph of the chest was obtained. Comparison: Comparison is made to chest radiograph 05/01/2021 FINDINGS: Exam is limited by underpenetration. The cardiomediastinal silhouette is normal. The lungs are clear. No evidence of pleural effusion or pneumothorax. IMPRESSION: No acute chest disease. ACT 112: Negative or not required by law. Electronically signed by: Yung Ramirez M.D. 12/07/2022 7:[address] 12/07/22 18:14 CT head/brain wo con CLINICAL HISTORY: seizure Technique: Contiguous axial CT images of the head were acquired from the base of the skull to the vertex without intravenous contrast administration. Images were viewed in brain, subdural and bone windows. Automated dose lowering techniques and/or adjustment according to patient size were utilized for this exam. Comparison: Comparison is made to CT head 12/01/2022 Findings: The ventricles, basal cisterns, and cerebral sulci are normal. There is no acute intracranial hemorrhage or evidence of acute territorial infarction. Neither mass effect, shift of the midline structures, nor abnormal extra-axial fluid collections are shown. Imaged portions of the paranasal sinuses and mastoid air cells are clear. The o rbits appear normal. There are no acute fractures of the calvaria. Scalp swelling is seen in the left parietal soft tissues. Impression: No acute intracranial hemorrhage or skull fractures. Scalp swelling is seen in the left parietal soft tissues with surgical osito in place. ACT 112: Negative or not required by law. Electronically signed by: Yung Ramirez M.D. 12/07/2022 7:23 PM Diagnostic Findings EKG as per my interpretation : Rate 90, NSR, LAD, LAFB, 1 AVB, septal infarct, T wave abnormalities lateral leads
[2022-12-07] MEDS ORDERED: TROLAMINE SALICYLATE 10% CRM 255 APPLN/85 GM TUBE EXT PRN (21:57)
[2022-12-07] MEDS ORDERED: TROLAMINE SALICYLATE 10% CRM 255 APPLN/85 GM TUBE EXT STA (21:57)
[2022-12-07] MEDS ORDERED: amLODIPine BESYLATE 5 MG TAB PO ONE (21:58)
[2022-12-07] MEDS ORDERED: GADOBUTROL 10ML VIAL IV ONE (23:28)
[2022-12-07] MEDS ORDERED: GLUCAGON FOR INJ 1 MG VIAL SQ PRN (23:42)
[2022-12-07] MEDS ORDERED: oxyCODONE HCL IR 5 MG TAB (IMMEDIATE RELEASE) PO PRN (23:42)
[2022-12-07] MEDS ORDERED: ACETAMINOPHEN 325 MG TAB PO PRN (23:42)
[2022-12-07] MEDS ORDERED: LORazepam 2 MG/1 ML VIAL IV PRN (23:42)
[2022-12-07] MEDS ORDERED: PROMETHAZINE HCL 12.5 MG in SODIUM CHLORIDE 0.9% 50 ML IV PRN (23:42)
[2022-12-07] MEDS ORDERED: CARBOHYDRATES FOR HYPOGLYCEMIA PO PRN (23:42)
[2022-12-07] MEDS ORDERED: DEXTROSE 50% 50 ML SYRINGE IV PRN (23:42)
[2022-12-07] MEDS ORDERED: GLUCOSE 10 TAB/TUBE PO PRN (23:42)
[2022-12-07] MEDS ORDERED: GLUCOSE 40% GEL 15 GM TUBE PO PRN (23:42)
--- NOTE | 2022-12-08 00:01 | Magnetic Resonance Report ---
Exam(s): MRI HEAD IV Amt: 10cc gadavist EXAM: MR Head With Intravenous Contrast CLINICAL HISTORY: Reason for exam: sz. TECHNIQUE: Magnetic resonance images of the head/brain with intravenous contrast in multiple planes. CONTRAST: Patient received 10cc gadavist of IV contrast COMPARISON: CT head 12/07/22 FINDINGS: Brain: No intracranial hemorrhage. No restricted diffusion. No apparent acute infarct. No mass lesion or midline shift. Involutional changes and small vessel disease. Ventricles: No hydrocephalus. Bones/joints: Unremarkable. Soft tissues: Scalp hematoma. Sinuses: Unremarkable as visualized. No acute sinusitis. Mastoid air cells: Unremarkable as visualized. No mastoid effusion. Orbits: Unremarkable as visualized. IMPRESSION: No acute findings in the head/brain. Electronically signed by: Suri Levy M.D. 12/08/22 00:00 AM
[2022-12-08] MEDS: INSULIN ASPART PER UNIT CHARGE SC SCH ×5 (00:44→21:18)
[2022-12-08] MEDS: busPIRone 15 MG TAB PO SCH ×4 (00:59→21:17)
[2022-12-08 01:41] LABS: Basophils # (auto) 0.03 K/uL (0-0.2); Basophils % (auto) 0.3 %; Eosinophils # (auto) 0.29 K/uL (0-0.50); Eosinophils % (auto) 2.8 %; Hematocrit (blood only) 32.5 % (37.0-47.0); Hemoglobin 11.2 g/dl (12.0-16.0); Immature Granulocytes # (auto) 0.04 K/uL (0.01-0.20); Immature Granulocytes % (auto) 0.4 %; Lymphocytes # (auto) 1.91 K/uL (1.2-3.4); Lymphocytes % (auto) 18.7 %; Mean Corpuscular Hemoglobin 30.3 pg (25.0-34.0); Mean Corpuscular Hgb Conc 34.5 g/dL (32.0-36.0); Mean Corpuscular Volume 87.8 fL (80.0-100.0); Mean Platelet Volume 9.3 fL (9.4-12.4); Monocytes # (auto) 1.05 K/uL (0.11-0.59); Monocytes % (auto) 10.3 %; Neutrophils # (auto) 6.91 K/uL (1.40-6.50); Neutrophils % (auto) 67.5 %; Platelet Count 261 K/uL (130-400); RDW Coefficient of Variation 12.9 % (11.5-14.5); RDW Standard Deviation 41.7 fL (36.4-46.3); White Blood Count 10.23 K/ul (4.8-10.8)
[2022-12-08 02:03] LABS: BUN Creatinine Ratio 10.3 (10-20); Calcium 8.8 mg/dl (8.6-10.3); Creatinine Clr Calc Pharmacy 97.1 ml/min; Est GFR (African American) 105.6 ml/min; Est GFR (Non-African American) 91.2 ml/min; Magnesium 2.2 mg/dl (1.7-2.4)
[2022-12-08] MEDS: CEFEPIME 2,000 MG in SYRINGE 0 ML IV SCH ×3 (02:53→18:10)
[2022-12-08] MEDS: LORazepam 2 MG/1 ML VIAL IV PRN ×2 (03:10→22:56)
[2022-12-08] MEDS ORDERED: LANTUS PER UNIT CHARGE SQ SCH ×2 (09:00)
[2022-12-08] MEDS: VITAMIN B COMPLEX TAB PO SCH (10:20)
[2022-12-08] MEDS: lisinopril 10 MG TAB PO SCH (10:20)
[2022-12-08] MEDS: MIRABEGRON ER 25 MG TAB PO SCH (10:20)
[2022-12-08] MEDS: FERROUS SULFATE 325 MG TAB PO SCH (10:20)
[2022-12-08 11:39] LABS: Estimated Average Glucose 117 mg/dl; Hemoglobin A1C 5.7 % (4.5-5.6)
--- NOTE | 2022-12-08 12:37 | Electroencephalogram ---
EEG Procedure Note Date of Service December 08, 2022 Start / End Times Start Time: 08:44 End Time: 09:04 Referring Physician Felton Yanez MD History The patient has been having episodes with loss of consciousness and seizure-like activity. This EEG was ordered to evaluate for epileptogenic activity. Home Medication List Medication Instructions Recorded Confirmed Type aspirin 81 mg tablet,delayed 81 mg PO DAILY 05/01/21 12/07/22 History release (Amanda Low Dose Aspirin) baclofen 10 mg tablet 10 mg PO TID 05/01/21 12/07/22 History buspirone 5 mg tablet See Rx Instructions .Route .COMPLEX 05/01/21 12/07/22 History glucosamine sulfate 1,000 mg 1,000 mg PO BID 05/01/21 12/07/22 History capsule insulin glargine 100 unit/mL (3 32 unit subcut DAILY 05/01/21 12/07/22 History mL) subcutaneous pen (Lantus Solostar U-100 Insulin) lisinopril 10 mg tablet 10 mg PO QAM 05/01/21 12/07/22 History metformin 1,000 mg tablet 1,000 mg PO BIDM 05/01/21 12/07/22 History mometasone 50 mcg/actuation nasal 2 spray intranasal QAM 05/01/21 12/07/22 History spray nystatin 100,000 unit/gram topical 1 applic topical DAILY PRN Rash 05/01/21 12/07/22 History cream pantoprazole 40 mg tablet,delayed 40 mg PO QAM 05/01/21 12/07/22 History release rosuvastatin 20 mg tablet 20 mg PO QPM 05/01/21 12/07/22 History sertraline 100 mg tablet 200 mg PO HS 05/01/21 12/07/22 History vitamin B complex 1 tab PO QAM 05/01/21 12/07/22 History albuterol sulfate 2.5 mg/3 mL 2.5 mg inhalation DIRECTED PRN 12/07/22 12/07/22 History (0.083 %) solution for nebulization Shortness Of Breath Or Wheezing amlodipine 2.5 mg tablet 2.5 mg PO DAILY 12/07/22 12/07/22 History ascorbic acid (vitamin C) 500 mg 500 mg PO DAILY 12/07/22 12/07/22 History tablet (Vitamin C) buspirone 10 mg tablet 10 mg PO TID 12/07/22 12/07/22 History clonidine HCl 0.2 mg tablet 0.2 mg PO HS 12/07/22 12/07/22 History docusate sodium 100 mg capsule 100 mg PO DAILY 12/07/22 12/07/22 History ferrous sulfate 325 mg (65 mg 325 mg PO DAILY 12/07/22 12/07/22 History iron) tablet (iron) galcanezumab-gnlm 120 mg/mL 120 mg subcut MONTHLY 12/07/22 12/07/22 History subcutaneous pen injector (Emgality Pen) levothyroxine 100 mcg tablet 100 mcg PO DAILYBB 12/07/22 12/07/22 History mirabegron 50 mg tablet,extended 50 mg PO DAILY 12/07/22 12/07/22 History release 24 hr (Myrbetriq) semaglutide 0.25 mg or 0.5 mg (2 0.5 mg subcut WK 12/07/22 12/07/22 History mg/1.5 mL) subcutaneous pen injector (Ozempic) Inpatient Medication List Buspirone HCl (Buspirone 15 Mg Tab) 15 mg PO TID [facility] Stop: 01/06/23 23:41 Last Admin: 12/08/22 10:19 Dose: 15 mg Documented By: Admin: 12/08/22 00:59 Dose: 15 mg Documented By: LUCY Ferrous Sulfate (Ferrous Sulfate 325 Mg Tab) 325 mg PO DAILY [facility] Stop: 01/07/23 08:59 Last Admin: 12/08/22 10:20 Dose: 325 mg Documented By: HAILE Cefepime HCl 2,000 mg/ Syringe 20 mls @ 5 mls/min IV Q8H [facility]; Protocol Stop: 12/18/22 02:29 Last Admin: 12/08/22 10:20 Dose: 5 mls/min Documented By: Admin: 12/08/22 02:53 Dose: 5 mls/min Documented By: LUCY Lisinopril (Lisinopril 10 Mg Tab) 10 mg PO QAM [facility] Stop: 01/07/23 08:59 Last Admin: 12/08/22 10:20 Dose: 10 mg Documented By: HAILE Lorazepam (Lorazepam 2 Mg/1 Ml Vial) 0.5 mg IV Q6H PRN PRN Reason: Anxiety Stop: 01/06/23 23:41 Last Admin: 12/08/22 03:10 Dose: 0.5 mg Documented By: LUCY Mirabegron (Mirabegron Er 25 Mg Tab) 50 mg PO DAILY [facility] Stop: 01/07/23 08:59 Last Admin: 12/08/22 10:20 Dose: 50 mg Documented By: HAILE Vitamin B Complex (Vitamin B Complex Tab) 1 tab PO QAM [facility] Stop: 01/07/23 08:59 Last Admin: 12/08/22 10:20 Dose: 1 tab Documented By: HAILE Discontinued Medications Amlodipine Besylate (Amlodipine Besylate 5 Mg Tab) 2.5 mg PO NOW ONE Stop: 12/07/22 21:59 Last Admin: 12/07/22 22:23 Dose: 2.5 mg Documented By: TANJA Gadobutrol (Gadobutrol 10ml Vial) 10 ml IV ONCE ONE Stop: 12/07/22 23:29 Last Admin: 12/07/22 23:28 Dose: 10 ml Documented By: MICHAEL Sodium Chloride (Nss) 500 mls @ 999 mls/hr IV .Q31M [facility] Stop: 12/07/22 18:45 Last Infusion: 12/07/22 19:48 Dose: 0 mls/hr Documented By: Admin: 12/07/22 19:16 Dose: 999 mls/hr Documented By: TANJA Sodium Chloride (Nss 1000ml) 1,000 mls @ 125 mls/hr IV .Q8H [facility] Stop: 12/08/22 02:14 Last Infusion: 12/08/22 05:39 Dose: 0 mls/hr Documented By: Infusion: 12/08/22 00:55 Dose: 0 mls/hr Documented By: Admin: 12/07/22 19:16 Dose: 125 mls/hr Documented By: TANJA Magnesium Sulfate/Dextrose (Magnesium Sulfate / D5w) 1 gm in 100 mls @ 50 mls/hr IV Q2H [facility] Stop: 12/08/22 00:44 Last Infusion: 12/08/22 02:50 Dose: 0 mls/hr Documented By: Admin: 12/07/22 23:58 Dose: 50 mls/hr Documented By: Infusion: 12/07/22 22:54 Dose: 50 mls/hr Documented By: Admin: 12/07/22 20:54 Dose: 50 mls/hr Documented By: TANJA Insulin Aspart (Insulin Aspart Per Unit Charge) 0 units SC ACHS [facility] Stop: 01/06/23 23:41 Last Admin: 12/08/22 08:36 Dose: Not Given Documented By: Admin: 12/08/22 00:44 Dose: Not Given Documented By: LUCY Co-signed By: Insulin Glargine (Lantus Per Unit Charge) 5 units SQ BID [facility] Stop: 01/07/23 08:59 Last Admin: 12/08/22 09:09 Dose: Not Given Documented By: HAILE Trolamine Salicylate (Trolamine Salicylate 10% Crm 255 Appln/85 Gm Tube) 1 appln EXT NOW STA Stop: 12/07/22 21:58 Last Admin: 12/07/22 22:25 Dose: 1 appln Documented By: TANJA Description This is a 21 electrode EEG with a single channel dedicated to limited EKG. The electrodes were placed in accordance with the International 10-20 system. Interpretation This was a somewhat limited study because of electrode artifacts mostly affecting the left parietal electrodes. During short periods of restful wakefulness, there was 9 Hz, 25 to 40 V posterior activity, attenuates with eye opening bilaterally. Background activity overall showed good organization but due to electrode artifacts, left parietal region activity could not be assessed reliably. During sleep, vertex sharp waves and sleep spindles were recorded bilaterally. Photic stimulations and hyperventilation were not attempted during the study. There was no electrographic seizures or epileptogenic discharge. Impression: This EEG, recorded in wakefulness and sleep, is normal. There is no electrographic seizures or epileptogenic discharge. This study is somewhat limited because of electrode artifacts. Clinical Correlation Normal routine EEG cannot rule out seizure disorders definitively. If clinically indicated, a prolonged or video epilepsy monitoring might offer further information.
[2022-12-08] MEDS: DOCUSATE SODIUM 100 MG CAP PO SCH (12:39)
[2022-12-08] MEDS: PANTOprazole 40 MG TAB PO SCH (12:39)
[2022-12-08] MEDS: amLODIPine BESYLATE 5 MG TAB PO SCH (12:40)
[2022-12-08] MEDS: BACLOFEN 10 MG TAB PO SCH ×3 (12:40→21:16)
[2022-12-08] MEDS: LEVOTHYROXINE SODIUM 100 MCG TABLET PO SCH (12:40)
[2022-12-08] MEDS: FLUTICASONE PROPIONATE NA SPR 16 GM BTL SCH (12:51)
--- NOTE | 2022-12-08 14:00 | Neurology Consultation ---
Date of Consultation December 08, 2022 Assessment & Plan (1) Observed seizure-like activity: Impression: The patient has had 3 episodes of loss of consciousness and last event was with generalized tonic-clonic activity with postictal confusion. The patient reports experiencing flashing lights prior to loss of consciousness episodes, and she reports having low blood sugar and second event. Overall, the patient likely had prolonged seizure during the last event. Electrolyte abnormalities, blood pressure and blood sugar drops might trigger syncopal events. EEG and MRI are unremarkable, however, until further investigation, seizure disorder should be considered in differential. Recommendations/plan: Because of recurrent events, with unclear etiology, we do recommend starting patient on lamotrigine for seizure prevention but also for headache, and mood disorder control. We should start patient on lamotrigine 25 mg twice a day for 2 weeks, then 50 mg twice a day for 2 weeks, then 75 mg twice a day for 2 weeks, then 100 mg twice a day which is at target dosage. The patient should be monitored for skin rash and other adverse reactions during this titration. Outpatient ambulatory EEG monitoring or video epilepsy monitoring study to investigate for epileptogenic etiology. Management no electrolyte abnormalities, and other metabolic derangements, which might provoke seizures. Outpatient cardiology evaluation to rule out cardiac rhythm abnormality and orthostatic hypotension/POT. The patient should be followed at neurology clinic, for recent events and also for headache management. She is neurologically stable and can be discharged home tomorrow. (2) Loss of consciousness: Impression: As seen above. (3) Hyponatremia: (4) Hypothyroidism: (5) Diabetes: (6) Hypertension: (7) CHI (closed head injury): (8) Chronic headache: Impression: The patient has a long history of frequent headaches, and some of them were throbbing with nausea, suggestive of migraine attacks. She probably has chronic migraine headache, and she has not been responsive to Emgality treatment. Since having head concussion recently, her headache severity has been worsened. Plan/recommendations: We will start patient on lamotrigine with titrating dosage, which might help to control headache as well as mood swings. History of Present Illness Reason for Consultation: Episodes of LOC and seizure like activity. Requesting Physician: Mir Croft MD Attending Physician: Rogers Croft MD History of Present Illness The patient is a 67-year-old female, who was admitted to hospital yesterday evening, after she had another episode of loss of consciousness with seizure- like activity. The patient was sitting in the car, felt strobe lights in her vision, and shortly after that, she lost her consciousness. According to , the patient was having generalized tonic and following clonic activity which lasted for few minutes. They activated EMS. BS was normal when EMS checked in ambulance. The patient was having postictal confusion for an hour or so. There was no tongue biting or urinary incontinence. The patient remembers feeling funny, with flashing lights in her vision, and she has no recollection of events during loss of consciousness or seizure-like activity. A week ago, the patient had similar event without seizure-like activity which caused a fall and head trauma. Head CT was negative for intracranial pathology then. She believes that her blood sugar was low then and a consider the likely cause of loss of consciousness. The patient reports having worsening chronic migraine headaches since having head concussion. She has been also suffering from depression, anxiety, with mood swings. She reports having a fairly similar event in October 2022. She was walking then, then felt flashing lights in her vision, and sat down. Apparently, she lost her consciousness without tonic- clonic activity. She does not think that she was having prolonged confusion then. She has been followed by local neurologists for chronic migraine. She has been on Emgality for 6 months or so and she reports no improvement of headaches. Currently, she gets daily headaches, and some of them can be throbbing and disabling. Since admission, cardiac monitoring has been showing regular rhythm. Brain MRI and EEG studies did not show abnormality. The patient has chronic hyponatremia and hypomagnesemia. She has been trying to lose weight and has lost almost 60 pounds during the last 6 months. Her blood pressure and blood sugar medications have been adjusted since she has lost sign ificant amount of weight. I have reviewed the patient's chart including imaging studies and visualized them personally. I have discussed the case with the patient and her . I have answered their questions in detail. Allergies Allergy/AdvReac Type Severity Reaction Status Date / Time naproxen AdvReac Severe "STROKE-LIKE Verified 12/07/22 19:29 SYMPTOMS" Home Medications Medication Instructions Recorded Confirmed Type aspirin 81 mg tablet,delayed 81 mg PO DAILY 05/01/21 12/07/22 History release (Amanda Low Dose Aspirin) baclofen 10 mg tablet 10 mg PO TID 05/01/21 12/07/22 History buspirone 5 mg tablet See Rx Instructions .Route .COMPLEX 05/01/21 12/07/22 History glucosamine sulfate 1,000 mg 1,000 mg PO BID 05/01/21 12/07/22 History capsule insulin glargine 100 unit/mL (3 32 unit subcut DAILY 05/01/21 12/07/22 History mL) subcutaneous pen (Lantus Solostar U-100 Insulin) lisinopril 10 mg tablet 10 mg PO QAM 05/01/21 12/07/22 History metformin 1,000 mg tablet 1,000 mg PO BIDM 05/01/21 12/07/22 History mometasone 50 mcg/actuation nasal 2 spray intranasal QAM 05/01/21 12/07/22 History spray nystatin 100,000 unit/gram topical 1 applic topical DAILY PRN Rash 05/01/21 12/07/22 History cream pantoprazole 40 mg tablet,delayed 40 mg PO QAM 05/01/21 12/07/22 History release rosuvastatin 20 mg tablet 20 mg PO QPM 05/01/21 12/07/22 History sertraline 100 mg tablet 200 mg PO HS 05/01/21 12/07/22 History vitamin B complex 1 tab PO QAM 05/01/21 12/07/22 History albuterol sulfate 2.5 mg/3 mL 2.5 mg inhalation DIRECTED PRN 12/07/22 12/07/22 History (0.083 %) solution for nebulization Shortness Of Breath Or Wheezing amlodipine 2.5 mg tablet 2.5 mg PO DAILY 12/07/22 12/07/22 History ascorbic acid (vitamin C) 500 mg 500 mg PO DAILY 12/07/22 12/07/22 History tablet (Vitamin C) buspirone 10 mg tablet 10 mg PO TID 12/07/22 12/07/22 History clonidine HCl 0.2 mg tablet 0.2 mg PO HS 12/07/22 12/07/22 History docusate sodium 100 mg capsule 100 mg PO DAILY 12/07/22 12/07/22 History ferrous sulfate 325 mg (65 mg 325 mg PO DAILY 12/07/22 12/07/22 History iron) tablet (iron) galcanezumab-gnlm 120 mg/mL 120 mg subcut MONTHLY 12/07/22 12/07/22 History subcutaneous pen injector (Emgality Pen) levothyroxine 100 mcg tablet 100 mcg PO DAILYBB 12/07/22 12/07/22 History mirabegron 50 mg tablet,extended 50 mg PO DAILY 12/07/22 12/07/22 History release 24 hr (Myrbetriq) semaglutide 0.25 mg or 0.5 mg (2 0.5 mg subcut WK 12/07/22 12/07/22 History mg/1.5 mL) subcutaneous pen injector (Ozempic) Patient History Medical History Anxiety Chronic headache Diabetes Hypertension Hypothyroidism Obesity Surgical History H/O total hysterectomy with bilateral salpingo-oophorectomy (BSO) Family History Mother Congestive heart failure Social History Smoking Status: Former smoker Second Hand Exposure: No; Do You Dip or Chew Tobacco: No; Tobacco Cessation Education Requested by Patient: No Hx Alcohol Use: No Hx Substance Use: No Preferred Language: Irish Communication Ability: Effective Resident Care Associate Required: No Beliefs That Will Affect Care: None Current Living Situation: Spouse Current Living Situation Comment: Lives with and dog Other Information That Helps Us Care for You: No Feels Safe at Home: Yes Safety Concerns: Feels Safe At This Time Assistive Devices: None Assistive Devices Comment: Patient feels that she may need to begin utilizing a cane at times Review of Systems Review of Systems: All systems reviewed & are unremarkable except as noted in HPI & below Physical Exam Physical Exam: General Examination: Constitutional: Well developed overweight person in no acute distress. HENT: Normal exam with inspection. CV: Hearth rhythm is regular. Neck: Supple, no carotid bruits. Lungs: Non-labored and comfortable breathing. Abdomen: Soft, non-tender, non-distended. Skin: No rash or ecchymosis. Extremities: No edema or cyanosis NEUROLOGICAL EXAMINATION: Mental Status: Alert and oriented to place, person and time. Cranial Nerves: II-XII are intact. No nystagmus. Funduscopy: Normal looking optic discs. Motor: 5/5 in all extremities without asymmetry. Tone: Normal without spasticity or rigidity. Sensory: Decreased sensation in distal lower extremities symmetrically. Coordination: No dysmetria with FTN testing. Speech: Fluent. Comprehension is intact. Gait: Slightly wide-based. No ataxia or abnormal walking pattern. Musculoskeletal: Normal muscle bulk, no atrophy. DTRs: 1+ in upper extremities and knees. Trace in ankles. Plantar reflexes are bilaterally downgoing. Results & Data Vital Signs (Past 12 Hours) Vital Signs Temp Pulse Pulse Resp BP BP Pulse Ox 12/08/22 11:20 36.7 C 79 18 112/73 97 12/08/22 07:20 36.7 C 72 18 154/83 H 96 12/08/22 07:01 70 18 130/75 97 12/08/22 01:30 37.2 C 69 18 130/93 97 O2 Del Method 12/08/22 11:20 Room Air 12/08/22 07:20 Room Air 12/08/22 07:01 Room Air 12/08/22 01:30 Room Air Laboratory Results Laboratory Results - last 24 hr 12/07/22 12/07/22 12/07/22 17:50 17:50 17:50 WBC 9.00 RBC 3.81 L Hgb 11.7 L Hct 34.1 L MCV 89.5 MCH 30.7 MCHC 34.3 RDW Std Deviation 42.4 RDW Coeff of Walker 13.0 Plt Count 262 MPV 9.6 Immature Gran % (Auto) 0.7 Neut % (Auto) 68.9 Lymph % (Auto) 17.1 [place] % (Auto) 9.1 Eos % (Auto) 4.0 Baso % (Auto) 0.2 Neut # (Auto) 6.20 Lymph # (Auto) 1.54 [place] # (Auto) 0.82 H Eos # (Auto) 0.36 Baso # (Auto) 0.02 Immature Gran # (Auto) 0.06 Sodium 125 L Potassium 3.9 Chloride 94 L Carbon Dioxide 22 Anion Gap 9 BUN 7 Creatinine 0.75 Est Cr Clr Drug Dosing Not Reportable Est GFR ( Amer) 96.3 Est GFR (Non-Af Amer) 83.1 BUN/Creatinine Ratio 9.3 L Glucose 213 H POC Glucose Estimat Average Glucose Hemoglobin A1c Osmolality Calcium 8.5 L Magnesium 1.5 L Total Bilirubin 0.4 AST 17 ALT 11 Alkaline Phosphatase 48 Total Creatine Kinase 61 Troponin I High Sens 5.8 Total Protein 6.9 Albumin 4.2 Globulin 2.7 Albumin/Globulin Ratio 1.6 TSH 2.119 Urine Color Urine Appearance Urine pH Ur Specific Randolph Urine Protein Urine Glucose (UA) Urine Ketones Urine Blood Urine Nitrite Urine Bilirubin Urine Urobilinogen Ur Leukocyte Esterase Urine WBC (Auto) Urine RBC (Auto) U Hyaline Cast (Auto) U Epithel Cells (Auto) Urine Bacteria (Auto) Urine Osmolality Ur Random Sodium SARS-CoV-2, RNA, NAAT 12/07/22 12/07/22 12/07/22 17:50 18:20 20:00 WBC RBC Hgb Hct MCV MCH MCHC RDW Std Deviation RDW Coeff of Walker Plt Count MPV Immature Gran % (Auto) Neut % (Auto) Lymph % (Auto) [place] % (Auto) Eos % (Auto) Baso % (Auto) Neut # (Auto) Lymph # (Auto) [place] # (Auto) Eos # (Auto) Baso # (Auto) Immature Gran # (Auto) Sodium Potassium Chloride Carbon Dioxide Anion Gap BUN Creatinine Est Cr Clr Drug Dosing Est GFR ( Amer) Est GFR (Non-Af Amer) BUN/Creatinine Ratio Glucose POC Glucose Estimat Average Glucose Hemoglobin A1c Osmolality 269 L Calcium Magnesium Total Bilirubin AST ALT Alkaline Phosphatase Total Creatine Kinase Troponin I High Sens Total Protein Albumin Globulin Albumin/Globulin Ratio TSH Urine Color Yellow Urine Appearance Clear Urine pH 5.5 Ur Specific Randolph 1.007 Urine Protein Negative Urine Glucose (UA) Negative Urine Ketones Negative Urine Blood Negative Urine Nitrite Negative Urine Bilirubin Negative Urine Urobilinogen Negative Ur Leukocyte Esterase 2+ H Urine WBC (Auto) 10-30 H Urine RBC (Auto) 0-4 U Hyaline Cast (Auto) 1-5 U Epithel Cells (Auto) >30 H Urine Bacteria (Auto) Negative Urine Osmolality Ur Random Sodium SARS-CoV-2, RNA, NAAT NEGATIVE 12/07/22 12/07/22 12/08/22 20:00 20:00 00:42 WBC RBC Hgb Hct MCV MCH MCHC RDW Std Deviation RDW Coeff of Walker Plt Count MPV Immature Gran % (Auto) Neut % (Auto) Lymph % (Auto) [place] % (Auto) Eos % (Auto) Baso % (Auto) Neut # (Auto) Lymph # (Auto) [place] # (Auto) Eos # (Auto) Baso # (Auto) Immature Gran # (Auto) Sodium Potassium Chloride Carbon Dioxide Anion Gap BUN Creatinine Est Cr Clr Drug Dosing Est GFR ( Amer) Est GFR (Non-Af Amer) BUN/Creatinine Ratio Glucose POC Glucose 103 H Estimat Average Glucose Hemoglobin A1c Osmolality Calcium Magnesium Total Bilirubin AST ALT Alkaline Phosphatase Total Creatine Kinase Troponin I High Sens Total Protein Albumin Globulin Albumin/Globulin Ratio TSH Urine Color Urine Appearance Urine pH Ur Specific Randolph Urine Protein Urine Glucose (UA) Urine Ketones Urine Blood Urine Nitrite Urine Bilirubin Urine Urobilinogen Ur Leukocyte Esterase Urine WBC (Auto) Urine RBC (Auto) U Hyaline Cast (Auto) U Epithel Cells (Auto) Urine Bacteria (Auto) Urine Osmolality 182 L Ur Random Sodium 30 SARS-CoV-2, RNA, NAAT 12/08/22 12/08/22 12/08/22 01:15 01:15 01:15 WBC 10.23 RBC 3.70 L Hgb 11.2 L Hct 32.5 L MCV 87.8 MCH 30.3 MCHC 34.5 RDW Std Deviation 41.7 RDW Coeff of Walker 12.9 Plt Count 261 MPV 9.3 L Immature Gran % (Auto) 0.4 Neut % (Auto) 67.5 Lymph % (Auto) 18.7 [place] % (Auto) 10.3 Eos % (Auto) 2.8 Baso % (Auto) 0.3 Neut # (Auto) 6.91 H Lymph # (Auto) 1.91 [place] # (Auto) 1.05 H Eos # (Auto) 0.29 Baso # (Auto) 0.03 Immature Gran # (Auto) 0.04 Sodium 131 L Potassium 4.0 Chloride 101 Carbon Dioxide 25 Anion Gap 5 BUN 7 Creatinine 0.68 Est Cr Clr Drug Dosing 97.1 Est GFR ( Amer) 105.6 Est GFR (Non-Af Amer) 91.2 BUN/Creatinine Ratio 10.3 Glucose 104 H POC Glucose Estimat Average Glucose 117 Hemoglobin A1c 5.7 H Osmolality Calcium 8.8 Magnesium 2.2 Total Bilirubin AST ALT Alkaline Phosphatase Total Creatine Kinase Troponin I High Sens Total Protein Albumin Globulin Albumin/Globulin Ratio TSH Urine Color Urine Appearance Urine pH Ur Specific Randolph Urine Protein Urine Glucose (UA) Urine Ketones Urine Blood Urine Nitrite Urine Bilirubin Urine Urobilinogen Ur Leukocyte Esterase Urine WBC (Auto) Urine RBC (Auto) U Hyaline Cast (Auto) U Epithel Cells (Auto) Urine Bacteria (Auto) Urine Osmolality Ur Random Sodium SARS-CoV-2, RNA, NAAT 12/08/22 12/08/22 12/08/22 07:22 10:32 11:54 WBC RBC Hgb Hct MCV MCH MCHC RDW Std Deviation RDW Coeff of Walker Plt Count MPV Immature Gran % (Auto) Neut % (Auto) Lymph % (Auto) [place] % (Auto) Eos % (Auto) Baso % (Auto) Neut # (Auto) Lymph # (Auto) [place] # (Auto) Eos # (Auto) Baso # (Auto) Immature Gran # (Auto) Sodium Potassium Chloride Carbon Dioxide Anion Gap BUN Creatinine Est Cr Clr Drug Dosing Est GFR ( Amer) Est GFR (Non-Af Amer) BUN/Creatinine Ratio Glucose POC Glucose 89 161 H 141 H Estimat Average Glucose Hemoglobin A1c Osmolality Calcium Magnesium Total Bilirubin AST ALT Alkaline Phosphatase Total Creatine Kinase Troponin I High Sens Total Protein Albumin Globulin Albumin/Globulin Ratio TSH Urine Color Urine Appearance Urine pH Ur Specific Randolph Urine Protein Urine Glucose (UA) Urine Ketones Urine Blood Urine Nitrite Urine Bilirubin Urine Urobilinogen Ur Leukocyte Esterase Urine WBC (Auto) Urine RBC (Auto) U Hyaline Cast (Auto) U Epithel Cells (Auto) Urine Bacteria (Auto) Urine Osmolality Ur Random Sodium SARS-CoV-2, RNA, NAAT Diagnostic Findings Chest X-Ray 12/07/22 18:14 XR chest 1V portable CLINICAL HISTORY: weakness TECHNIQUE: Single frontal radiograph of the chest was obtained. Comparison: Comparison is made to chest radiograph 05/01/2021 FINDINGS: Exam is limited by underpenetration. The cardiomediastinal silhouette is normal. The lungs are clear. No evidence of pleural effusion or pneumothorax. IMPRESSION: No acute chest disease. ACT 112: Negative or not required by law. Electronically signed by: Yung Ramirez M.D. 12/07/2022 7:[address] 12/07/22 18:14 CT head/brain wo con CLINICAL HISTORY: seizure Technique: Contiguous axial CT images of the head were acquired from the base of the skull to the vertex without intravenous contrast administration. Images were viewed in brain, subdural and bone windows. Automated dose lowering techniques and/or adjustment according to patient size were utilized for this exam. Comparison: Comparison is made to CT head 12/01/2022 Findings: The ventricles, basal cisterns, and cerebral sulci are normal. There is no acute intracranial hemorrhage or evidence of acute territorial infarction. Neither mass effect, shift of the midline structures, nor abnormal extra-axial fluid collections are shown. Imaged portions of the paranasal sinuses and mastoid air cells are clear. The orbits appear normal. There are no acute fractures of the calvaria. Scalp swelling is seen in the left parietal soft tissues. Impression: No acute intracranial hemorrhage or skull fractures. Scalp swelling is seen in the left parietal soft tissues with surgical osito in place. ACT 112: Negative or not required by law. Electronically signed by: Yung Ramirez M.D. 12/07/2022 7:23 PM Brain MRI 12/07/22 21:57 Exam(s): MRI HEAD IV Amt: 10cc gadavist EXAM: MR Head With Intravenous Contrast CLINICAL HISTORY: Reason for exam: sz. TECHNIQUE: Magnetic resonance images of the head/brain with intravenous contrast in multiple planes. CONTRAST: Patient received 10cc gadavist of IV contrast COMPARISON: CT head 12/07/22 FINDINGS: Brain: No intracranial hemorrhage. No restricted diffusion. No apparent acute infarct. No mass lesion or midline shift. Involutional changes and small vessel disease. Ventricles: No hydrocephalus. Bones/joints: Unremarkable. Soft tissues: Scalp hematoma. Sinuses: Unremarkable as visualized. No acute sinusitis. Mastoid air cells: Unremarkable as visualized. No mastoid effusion. Orbits: Unremarkable as visualized. IMPRESSION: No acute findings in the head/brain. Electronically signed by: Suri Levy M.D. 12/08/22 00:00 AM (7) CHI (closed head injury) Encounter type: initial encounter Qualified Code(s): S09.90XA - Unspecified injury of head, initial encounter
--- NOTE | 2022-12-08 15:01 | Electrocardiogram Report ---
Test Reason : Blood Pressure : / mmHG Vent. Rate : 092 BPM Atrial Rate : 092 BPM P-R Int : 210 ms QRS Dur : 094 ms QT Int : 362 ms P-R-T Axes : 049 -18 079 degrees QTc Int : 447 ms Sinus rhythm with 1st degree A-V block Otherwise normal ECG When compared with ECG of 01-DEC-2022 17:28, No significant change was found Confirmed by Yuan Flores ([id number]) on 12/08/2022 3:00:49 PM Referred By: REFERRED SELF Confirmed By:Yuan Flores
[2022-12-08] MEDS ORDERED: Nursing to Pharmacy Communication SCH (19:15)
[2022-12-08] MEDS ORDERED: cloNIDine HCL 0.1 MG TAB PO SCH (21:00)
[2022-12-08] MEDS ORDERED: ROSUVASTATIN CALCIUM 20 MG TAB PO SCH (21:00)
[2022-12-08] MEDS: LANTUS PER UNIT CHARGE SQ SCH (21:17)
--- NOTE | 2022-12-08 22:05 | Hospitalist Progress Note ---
Date of Service December 08, 2022 Assessment & Plan (1) Seizure-like activity: Plan: Present on admission with witness seizure like activity CT head showed no acute intracranial hemorrhage or skull fractures. Scalp swelling is seen in the left parietal soft tissues with surgical osito in place. MRI showed no acute findings in the head/brain. EEG showed normal routine EEG cannot rule out seizure disorders definitively. ECHO showed no LV wall motion abnormality. EF 60 to 65% Neuro on board recommended to start Lamotrigine 25 mg twice a day for 2 weeks, then 50 mg twice a day for 2 weeks, then 75 mg twice a day for 2 weeks, then 100 mg twice a day which is at target dosage. Will need to monitor for skin rash and other adverse reactions while on Lamotrigine Consider outpatient ambulatory EEG monitoring or video epilepsy monitoring study to investigate for epileptogenic etiology. Will outpatient follow up with neuro Hyponatremia Possible related to SIADH Patient also consumes large amount of fluids daily due to dry mouth Na 125 on admission Sodium level 131 today Encouraged patient to restrict fluids to 2L per day Continue monitor BMP Abnormal UA Complaint of urinary frequency Urine cx grew Group B beta strep Currently on IV Cefepime Will deescalate abx since pt complaint of frequency Diabetes: A1c 5.7 today Continue lantus and novolog sliding scale Continue monitor BS Hyperlipidemia: Continue statin. Hypertension: Continue lisinopril, clonidine HS and amlodipine. Generalized anxiety disorder: Continue her buspirone. Insomnia: He takes Benadryl at bedtime. Hypothyroidism: On Synthroid. Gastroesophageal reflux disease: On Protonix. DVT px on SCDs due to recent scalp hematoma Code status full code Admission and Anticipated Discharge Date Admission Date: December 07, 2022 Subjective Pt was seen and examined for follow up of seizure like activity Sitting in chair with no acute distress with at bedside Pt said that she feels fine today She said that she could not tolerate the bright light during the NG tube Pt is very anxious to go home Denies aany chest pain, palpitation, dizziness and SOB Review of Systems Review of Systems: All systems reviewed & are unremarkable except as noted in Subjective Physical Exam Physical Exam: General- No acute distress Head- Laceration and surgical osito on the left parietal area Eyes- PERRL, EOMI, ENT- oropharynx clear Neck- supple, no JVD Lungs- +decreased BS Heart- regular rhythm; no murmur Abdomen- normal bowel sounds, soft, nontender Extremities- no calf tenderness Neuro- alert, oriented x 3; PERRL, EOMI; no facial palsy; no dysarthria Skin- warm & dry Results & Data Results & Data Vital Signs (Past 12 Hours) Vital Signs Temp Pulse Resp BP Pulse Ox O2 Del Method 12/08/22 19:41 36.7 C 87 18 129/80 98 Room Air 12/08/22 15:57 36.8 C 78 18 152/78 H 96 Room Air 12/08/22 11:20 36.7 C 79 18 112/73 97 Room Air
[2022-12-09] MEDS: CEFEPIME 2,000 MG in SYRINGE 0 ML IV SCH ×2 (03:09→10:43)
[2022-12-09] MEDS: LEVOTHYROXINE SODIUM 100 MCG TABLET PO SCH (05:42)
[2022-12-09] MEDS: VITAMIN B COMPLEX TAB PO SCH (08:21)
[2022-12-09] MEDS: lisinopril 10 MG TAB PO SCH (08:21)
[2022-12-09] MEDS: FERROUS SULFATE 325 MG TAB PO SCH (08:21)
[2022-12-09] MEDS: PANTOprazole 40 MG TAB PO SCH (08:21)
[2022-12-09] MEDS: MIRABEGRON ER 25 MG TAB PO SCH (08:21)
[2022-12-09] MEDS: amLODIPine BESYLATE 5 MG TAB PO SCH (08:22)
[2022-12-09] MEDS: DOCUSATE SODIUM 100 MG CAP PO SCH (08:22)
[2022-12-09] MEDS: busPIRone 15 MG TAB PO SCH ×2 (08:23→13:15)
[2022-12-09] MEDS: FLUTICASONE PROPIONATE NA SPR 16 GM BTL SCH (08:24)
[2022-12-09] MEDS: LANTUS PER UNIT CHARGE SQ SCH (08:34)
[2022-12-09] MEDS: BACLOFEN 10 MG TAB PO SCH ×2 (08:34→13:15)
[2022-12-09] MEDS: INSULIN ASPART PER UNIT CHARGE SC SCH ×2 (08:34→12:34)
[2022-12-09] MEDS ORDERED: lamoTRIgine 25 MG TAB PO SCH (09:15)
[2022-12-09 10:19] LABS: BUN Creatinine Ratio 8.6 (10-20); Creatinine Clr Calc Pharmacy 79.9 ml/min; Est GFR (African American) 87.7 ml/min; Est GFR (Non-African American) 75.7 ml/min; Potassium 3.8 mmol/L (3.5-5.1)
--- NOTE | 2022-12-09 16:18 | Discharge Summary ---
Date of Service December 09, 2022 Admission HPI Per Admitting Provider History obtained from patient, family, and records. Medical history significant for hypertension, hyperlipidemia, DM2 insulin requiring, chronic hyponatremia secondary to SIADH, endometrial cancer status post surgery, chronic migraine, cervicogenic headache as per records, mild cognitive impairment as per records, essential tremor as per records, GERD, anxiety/mood disorder, urinary incontinence. Last confinement April 2021 for atypical chest pain, ACS ruled out. Patient diagnosed to have migraine the last few years. Migraine headache somewhat worsening of late as per patient. Triggered by bright lights. Emgality injections not working as per patient. Last month, patient had a witnessed seizure at home by a family member. Seizure triggered by bright light exposure as per patient. No consultations done. Patient seen at the ER last week for head trauma following a fall. Possible syncopal event after exposure to bright light at a parking lot. No weakness seizures at time of event. Drums applied on patient's scalp laceration. Patient was a passenger in a personal vehicle today when she was noted to have generalized tonic-clonic seizures by family. Episode lasting about a minute. No tongue biting or incontinence. Patient confused after episode. Patient complaining of headache symptoms. No chest pain, no SOB. Dysuria symptoms without abdominal or flank pain. Admits to going over 32 ounce daily fluid restriction for her hyponatremia. Patient has no recollection of seizure event but recalls being bothered by bright light again. Patient brought by family to the ER Medical History as above Surgical History : D&C, RUTHY, oophorectomy, BTL, IUD placement Family History : Alcoholism, breast cancer, DM, heart disease, dementia Personal/Social history : Non-smoker, no EtOH intake, prior work as a caregiver Discharge Exam General- No acute distress Head- Laceration and surgical osito on the left parietal area Eyes- PERRL, EOMI, ENT- oropharynx clear Neck- supple, no JVD Lungs- +decreased BS Heart- regular rhythm; no murmur Abdomen- normal bowel sounds, soft, nontender Extremities- no calf tenderness Neuro- alert, oriented x 3; PERRL, EOMI; no facial palsy; no dysarthria Skin- warm & dry Discharge Data Allergies Allergy/AdvReac Type Severity Reaction Status Date / Time naproxen AdvReac Severe "STROKE-LIKE Verified 12/07/22 19:29 SYMPTOMS" Consultations 12/07/22 21:20 ED Decision to Admit Stat 12/07/22 23:42 Consult Neurology Routine Ordered Studies 12/07/22 18:14 CT head/brain wo con Stat 12/07/22 21:57 MRI Brain [MR brain seizure wo/w con] Routine Hospital Course (1) Seizure-like activity: Present on admission with witness seizure like activity CT head showed no acute intracranial hemorrhage or skull fractures. Scalp swelling is seen in the left parietal soft tissues with surgical osito in place. MRI showed no acute findings in the head/brain. EEG showed normal routine EEG cannot rule out seizure disorders definitively. ECHO showed no LV wall motion abnormality. EF 60 to 65% Neuro on board recommended to start Lamotrigine 25 mg twice a day for 2 weeks, then 50 mg twice a day for 2 weeks, then 75 mg twice a day for 2 weeks, then 100 mg twice a day which is at target dosage. Will need to monitor for skin rash and other adverse reactions while on Lamotrigine Consider outpatient ambulatory EEG monitoring or video epilepsy monitoring study to investigate for epileptogenic etiology. Will outpatient follow up with neuro Hyponatremia Possible related to SIADH Patient also consumes large amount of fluids daily due to dry mouth Na 125 on admission Sodium level 131 today Encouraged patient to restrict fluids to 2L per day Continue monitor BMP Abnormal UA Complaint of urinary frequency Urine cx grew Group B beta strep Currently on IV Cefepime Will deescalate abx since pt complaint of frequency Diabetes: A1c 5.7 today Continue lantus and novolog sliding scale Continue monitor BS Hyperlipidemia: Continue statin. Hypertension: Continue lisinopril, clonidine HS and amlodipine. Generalized anxiety disorder: Continue her buspirone. Insomnia: He takes Benadryl at bedtime. Hypothyroidism: On Synthroid. Gastroesophageal reflux disease: On Protonix. DVT px on SCDs due to recent scalp hematoma Code status full code Discharge Plan Discharge Items Patient Disposition: Home - Self-Care Reason For Visit: SEIZURE, SYNCOPE Discharge Diagnosis: Seizure-like activity: Hyponatremia Urinary tract infection Diabetes Hyperlipidemia Hypertension Generalized anxiety disorder Insomnia: Hypothyroidism Activity: Resume your previous activity Non-emergency contact: Primary Care Provider and Neurologist Call non-emergency contact if: you have any medication questions and your symptoms worsen Follow-up/Referrals: Carolyn Coronel PA-C [[facility]] - (Date & Time 12/24/2022 11:20 AM Provider Carolyn Coronel PA-C Department Neurology [facility] ) Lake Hopkins DO [Primary Care Provider] - (Date & Time 12/16/2022 1:40 PM Provider Lake Hopkins DO Department Family [address] ) Diet: Carb Consistent or DM2 Fluids: 1500ml (6 cups) Addtl Attending Provider Instructions: Follow up with your primary care provider 12/16/2022 @1:40 PM Lake Hopkins DO Department Family [address] Follow with your neurology 12/24/2022 @ 11:20 AM Carolyn Coronel PA-C Department Neurology [facility] Follow up with pharmacy for your glycemic management Continue monitor your blood sugar ( Your provider will continue adjust your insulin) Continue seizure precaution No driving for at least 6 months free of seizure Avoid any bathing, swimming alone Avoid any high level activity Fall precaution Your provider will titrate Lamotrigine 25 mg twice a day for 2 weeks, then 50 mg twice a day for 2 weeks, then 75 mg twice a day for 2 weeks, then 100 mg twice a day which is at target dosage. You will need to monitor for skin rash and other adverse reactions while on Lamotrigine Continue fluid restriction with 2 liter daily Check BMP in 1 week to monitor your sodium level Pending Studies at Discharge: No Stand-Alone Forms: My [facility], Smoking Cessation Medications and DC Order Prescriptions: New lamotrigine [Lamictal] 25 mg Tablet 25 mg PO BID Qty: 60 0RF Rx Instructions: take 25mg twice a day x 2 weeks, then 50mg twice a day for 2 weeks Continued albuterol sulfate 2.5 mg /3 mL (0.083 %) Solution For Nebulization 2.5 mg INHALATION DIRECTED PRN (Reason: Shortness Of Breath Or Wheezing) amlodipine 2.5 mg Tablet 2.5 mg PO DAILY levothyroxine 100 mcg tablet 100 mcg PO DAILYBB clonidine HCl 0.2 mg tablet 0.2 mg PO HS ascorbic acid (vitamin C) [Vitamin C] 500 mg Tablet 500 mg PO DAILY ferrous sulfate [iron] 325 mg (65 mg iron) Tablet 325 mg PO DAILY buspirone 10 mg tablet 10 mg PO TID Rx Instructions: TOTAL DOSE 15 MG TID, TAKES WITH 5 MG TAB. docusate sodium 100 mg Capsule 100 mg PO DAILY Myrbetriq 50 mg Tablet Extended Release 24 Hr 50 mg PO DAILY Ozempic 0.25 mg or 0.5 mg(2 mg/1.5 mL) Pen Injector 0.5 mg SUBCUT WK Emgality Pen 120 mg/mL Pen Injector 120 mg SUBCUT MONTHLY Rx Instructions: LAST REFILL 11/24/22. aspirin [Amanda Low Dose Aspirin] 81 mg Tablet,Delayed Release (Dr/Ec) 81 mg PO DAILY baclofen 10 mg tablet 10 mg PO TID Rx Instructions: PER PT "USUALLY AT HS". buspirone 5 mg tablet See Rx Instructions .ROUTE .COMPLEX Rx Instructions: PER [facility]--take 20 mg orally in morning,10mg orally in afternoon,20mg orally at bedtime. PER PT--TAKING 5 MG TID ALONG WITH 10 MG TAB--TOTAL 15 MG TID. sertraline 100 mg tablet 200 mg PO HS metformin 1,000 mg tablet 1,000 mg PO BIDM lisinopril 10 mg tablet 10 mg PO QAM pantoprazole 40 mg tablet,delayed release (DR/EC) 40 mg PO QAM nystatin 100,000 unit/gram Cream 1 applic TOPICAL DAILY PRN (Reason: Rash) mometasone 50 mcg/actuation spray,non-aerosol 2 spray INTRANASAL QAM rosuvastatin 20 mg Tablet 20 mg PO QPM vitamin B complex Tablet 1 tab PO QAM glucosamine sulfate 1,000 mg Capsule 1,000 mg PO BID Changed insulin glargine [Lantus Solostar U-100 Insulin] 100 unit/mL (3 mL) insulin pen 15 unit SUBCUT DAILY Qty: 1 0RF Discharge Orders: Discharge Order (Routine); Ordered 12/09/22 Ordered By: Rogers Hale/Other Patient Handouts: Hypoglycemia (Low Blood Sugar), Hypoglycemia Tx Steps Admission Data Admit Date/Time: 12/07/22 21:53 Attending Provider: Rogers Croft Admit Provider: Felton Yanez Primary Care Provider: Lake Hopkins Other Providers: Felton Yanez ; Jacobo Chisholm
== END 2022-12-09 17:05 | disposition home or self-care (01) | DRG 101 ==
LOC: ED 17:47 → EDINP 21:53 → 2S 12-08 07:01